=== PATIENT | female | born 1940 | race Caucasian/White ===

== ENCOUNTER 2016-03-13 08:00 | Outpatient (CLI) | payer MEDICARE | END 2016-03-13 23:59 | disposition home or self-care (01) | DX: D64.9 Anemia, unspecified (principal); Z12.10 Encounter for screening for malignant neoplasm of intestinal tract, unspecified ==

== ENCOUNTER 2016-03-27 12:37 | Outpatient (CLI) | payer MEDICARE | END 2016-03-27 12:38 | disposition home or self-care (01) | DX: R01.1 Cardiac murmur, unspecified (principal) ==

== ENCOUNTER 2016-05-30 13:47 | Outpatient (CLI) | payer MEDICARE | END 2016-05-30 13:48 | disposition home or self-care (01) | DX: G47.10 Hypersomnia, unspecified (principal); G47.8 Other sleep disorders | CPT/HCPCS: 99203; G0463 ==

== ENCOUNTER 2016-07-06 11:18 | Outpatient (CLI) | payer MEDICARE ==
[2016-07-06] MEDS ORDERED: GADOBUTROL 10 MMOL/10 ML VIAL IVP ONE (13:50)
--- NOTE | 2016-07-07 09:59 | MRI Report ---
EXAM: MR ABDOMEN WITH AND WITHOUT CONTRAST (MR KIDNEYS) EXAM DATE: 07/06/2016 12:45 PM. CLINICAL HISTORY: Ultrasound isoechoic and complex CT dense mass in the posterior mid left renal jasiel ex, follow-up. COMPARISON: None. TECHNIQUE: Multiplanar breath-hold T1, T2, and DWI sequences obtained through the kidneys and abdomen on an MR scanner. Images obtained before and after administration of 8 mL Gadavist intravenous contr ast. Multiphase sequences obtained through the kidneys. FINDINGS: Lung Bases and Lower Chest: There is borderline cardiomegaly. Liver: The liver has normal size, morphology and signal. No evidence of mass or biliary dilatation. Gallbladder: The gallbladder is partially distended and appears normal with no wall thickening or sto ne. Pancreas: The pancreas appears normal with no mass or ductal dilatation. Spleen: The spleen appears normal. Kidneys: Right Kidney: The right kidney measures 9.6 cm in length. In the upper pole, there is a simple cortic al cyst, 1.4 cm in diameter; no complex cyst, mass or hydronephrosis. The visualized portions of the ureters appear normal. Left Kidney: The left kidney measures 9.9 cm in length. There are 2 semiexophytic left renal cortical lesions. One is in the lateral mid cortex, 1.7 x 2.2 x 2.1 cm, hyper T1, hypo T2 signal intensity in the lower half and hyper T2 and hypo T1 signal intensity in the upper half without IV contrast enhan cement, compatible with a hemorrhagic cyst. The second is located in the posterior lower pole, 2.6 x 2.6 x 3.1 cm, a thick rim-like complex cyst, the wall thickness measured 4 mm, containing a daughter cystic nidus in the cranial portion, 1.1 x 1 x 1.5 cm, without hyper T1 signal intensity to suggest h emorrhagic component. There are 2 left renal intracortical lesions, one in the upper posterior mid co rtex, 1.8 x 1.3 cm, a simple cyst; the other one located in the lower pole cortex, 1.5 x 2 cm with hy per T1, hypo T2 signal intensity without IV contrast enhancement, compatible with a hemorrhagic cyst. No solid renal mass or hydronephrosis in the left kidney seen. The visualized portions of the ureter s appear normal. The left renal hilum and perirenal hilum are unremarkable. Adrenals: The adrenal glands appear normal. Bowel: The small bowel and colon appear normal with no inflammation or obstruction. Retroperitoneum: The retroperitoneal structures appear normal with no mass or lymphadenopathy. Other: Imaging artifact from the posterior lower lumbar spine fusion hardware is noted. IMPRESSION: 1. Two semiexophytic left renal cortical lesions. One is located in the posterior mid-lower pole, a s light thickened wall complex cyst containing a daughter cyst, 3.1 cm in the maximum dimension, which corresponds to the isoechoic lesion in the ultrasound and complex density in the CT exam. Continued a bdominal MRI follow-up in 6-10 months is recommended. The other semiexophytic cortical lesion is loca pete in the lateral mid cortex, compatible with a hemorrhagic cyst. 2. Two intracortical lesions in the left kidney, one in the upper posterior cortex, consistent with a simple cyst and one in the lower pole of the left kidney, consistent with a hemorrhagic cyst. 3. A simple cortical cyst in the upper pole of the right kidney. [facility] Referring Provider Line: [phone] SITE ID: [id number]
== END 2016-07-06 11:19 | disposition home or self-care (01) ==
LOC: DI 11:18
DX: N28.9 Disorder of kidney and ureter, unspecified (principal); Q61.02 Congenital multiple renal cysts
CPT/HCPCS: 36415; 74183; 82565; A9585

== ENCOUNTER 2016-07-19 09:30 | Outpatient (CLI) | payer MEDICARE ==
[2016-07-19 12:44] LABS: BASOPHILS % (AUTO) 0.7 %; EOSINOPHILS # (AUTO) 0.2 10^3/uL (0.0-0.7); EOSINOPHILS % (AUTO) 3.1 %; HCT - HEMATOCRIT 33.3 % (37.0-47.0); HGB - HEMOGLOBIN 11.1 g/dL (12.0-16.0); LYMPHOCYTES # (AUTO) 1.2 10^3/uL (1.5-3.5); LYMPHOCYTES % (AUTO) 17.7 %; MEAN CORPUSCULAR HEMOGLOBIN 30.6 pg (27.0-31.0); MEAN CORPUSCULAR HGB CONC 33.3 g/dL (32.0-36.0); MEAN CORPUSCULAR VOLUME 91.8 fL (81.0-99.0); MEAN PLATELET VOLUME 8.6 fL (7.9-10.8); MONOCYTES # (AUTO) 0.5 10^3/uL (0.0-1.0); MONOCYTES % (AUTO) 7.2 %; NEUTROPHILS # (AUTO) 4.8 10^3/uL (1.5-6.6); NEUTROPHILS % (AUTO) 71.3 %; RED BLOOD COUNT 3.62 10^6/uL (4.20-5.40); RED CELL DISTRIBUTION WIDTH 13.6 % (12.0-15.0); UNCORRECTED WHITE BLOOD COUNT 6.7 x10^3/uL; WHITE BLOOD COUNT 6.7 x10^3/uL (4.8-10.8)
[2016-07-19 13:12] LABS: ALBUMIN/GLOBULIN RATIO 1.4 (1.0-2.2); BILIRUBIN,TOTAL 0.5 mg/dL (0.2-1.0); BUN - BLOOD UREA NITROGEN 28 mg/dL (6-20); CALCIUM 10.4 mg/dL (8.5-10.3); CARBON DIOXIDE - CO2 24 mmol/L (21-32); CHLORIDE 110 mmol/L (101-111); CHOLESTEROL 133 mg/dL; CREATININE 1.1 mg/dL (0.4-1.0); GFR - MDRD 48 (>89); GLUCOSE 86 mg/dL (70-100); HDL CHOLESTEROL 45 mg/dL; LDL/HDL RATIO 1.5 (<4.4); POTASSIUM 4.6 mmol/L (3.5-5.0); SODIUM 138 mmol/L (135-145); TOTAL PROTEIN 6.6 g/dL (6.7-8.2); TRIGLYCERIDES 98 mg/dL; VLDL CHOLESTEROL 20 mg/dL
[2016-07-19 13:14] LABS: HEMOGLOBIN A1C 0.41 g/dL
[2016-07-19 13:34] LABS: THYROID STIMULATING HORMONE 2.73 uIU/mL (0.34-5.60)
== END 2016-07-19 09:31 ==
LOC: LAB.WCP 09:30
PROVIDERS: ATTEND Physician Assistant Medical
DX: D64.9 Anemia, unspecified (principal); R63.5 Abnormal weight gain; E78.00 Pure hypercholesterolemia, unspecified; E11.9 Type 2 diabetes mellitus without complications; E53.8 Deficiency of other specified B group vitamins
CPT/HCPCS: 36415; 80053; 80061; 82043; 82607; 83036; 83970; 84439; 84443; 85025

== ENCOUNTER 2016-08-09 22:26 | Outpatient (CLI) | payer MEDICARE | END 2016-08-09 22:27 | disposition home or self-care (01) | DX: G47.8 Other sleep disorders (principal); R06.83 Snoring; G47.10 Hypersomnia, unspecified ==

== ENCOUNTER 2016-08-29 13:58 | Outpatient (CLI) | payer MEDICARE | END 2016-08-29 13:59 | disposition home or self-care (01) | LOC: SC 13:58 | PROVIDERS: ATTEND Nurse Practitioner Family | DX: G47.8 Other sleep disorders (principal); G47.10 Hypersomnia, unspecified | CPT/HCPCS: 99214; G0463; 99212 ==

== ENCOUNTER 2016-12-27 08:00 | Outpatient (CLI) | payer MEDICARE ==
[2016-12-27 19:30] LABS: BASOPHILS % (AUTO) 0.5 %; EOSINOPHILS # (AUTO) 0.2 10^3/uL (0.0-0.7); EOSINOPHILS % (AUTO) 2.9 %; HGB - HEMOGLOBIN 11.2 g/dL (12.0-16.0); LYMPHOCYTES # (AUTO) 1.2 10^3/uL (1.5-3.5); LYMPHOCYTES % (AUTO) 22.2 %; MEAN CORPUSCULAR HEMOGLOBIN 30.6 pg (27.0-31.0); MEAN CORPUSCULAR HGB CONC 33.1 g/dL (32.0-36.0); MEAN CORPUSCULAR VOLUME 92.5 fL (81.0-99.0); MEAN PLATELET VOLUME 8.9 fL (7.9-10.8); MONOCYTES # (AUTO) 0.4 10^3/uL (0.0-1.0); MONOCYTES % (AUTO) 8.1 %; NEUTROPHILS # (AUTO) 3.6 10^3/uL (1.5-6.6); NEUTROPHILS % (AUTO) 66.3 %; NUCLEATED RED BLOOD CELLS AUTO 0.1 /100WBC; RED BLOOD COUNT 3.67 10^6/uL (4.20-5.40); RED CELL DISTRIBUTION WIDTH 14.1 % (12.0-15.0); UNCORRECTED WHITE BLOOD COUNT 5.4 x10^3/uL; WHITE BLOOD COUNT 5.4 x10^3/uL (4.8-10.8)
[2016-12-27 19:43] LABS: HEMOGLOBIN A1C 0.46 g/dL
[2016-12-27 20:01] LABS: ALBUMIN/GLOBULIN RATIO 1.3 (1.0-2.2); BILIRUBIN,TOTAL 0.4 mg/dL (0.2-1.0); CALCIUM 10.4 mg/dL (8.5-10.3); CREATININE 1.2 mg/dL (0.4-1.0); POTASSIUM 4.5 mmol/L (3.5-5.0); TOTAL PROTEIN 6.9 g/dL (6.7-8.2)
== END 2016-12-27 08:01 | disposition home or self-care (01) ==
LOC: LAB.WCP 08:00
PROVIDERS: ATTEND Physician Assistant Medical
DX: R79.89 Other specified abnormal findings of blood chemistry (principal); E83.52 Hypercalcemia; M71.21 Synovial cyst of popliteal space [Baker], right knee; E53.8 Deficiency of other specified B group vitamins; D64.9 Anemia, unspecified; E11.9 Type 2 diabetes mellitus without complications
CPT/HCPCS: 36415; 80053; 82607; 82728; 83036; 83540; 83970; 84466; 85025

== ENCOUNTER 2016-12-28 09:48 | Outpatient (CLI) | payer MEDICARE ==
[2016-12-28 10:10] LABS: CALCIUM, IONIZED 1.38 mmol/L (1.15-1.33); VBG PH 7.346 (7.31-7.41)
== END 2016-12-28 09:49 | disposition home or self-care (01) ==
LOC: LAB 09:48
PROVIDERS: ATTEND Physician Assistant Medical
DX: R79.89 Other specified abnormal findings of blood chemistry (principal); E83.52 Hypercalcemia; M71.21 Synovial cyst of popliteal space [Baker], right knee
CPT/HCPCS: 36415; 82330

== ENCOUNTER 2017-03-05 10:59 | Outpatient (CLI) | payer MEDICARE | END 2017-03-05 11:00 | disposition home or self-care (01) | LOC: LAB 10:59 | PROVIDERS: ATTEND Orthopaedic Surgery | DX: M17.11 Unilateral primary osteoarthritis, right knee (principal) | CPT/HCPCS: 36415; 86850; 86900; 86901 ==

== ENCOUNTER 2017-03-06 06:11 | Inpatient (IN) | payer MEDICARE ==
[2017-03-06] MEDS ORDERED: LACTATED RINGERS 1,000 ML IV ONE ×3 (06:32→09:19)
[2017-03-06] MEDS ORDERED: ceFAZolin 2 GM/50 ML 2 GM/50 ML BAG IV ONE (06:35)
[2017-03-06] MEDS ORDERED: ACETAMINOPHEN 1,000 MG/100 ML 100 ML IV ONE ×2 (06:56→09:00)
[2017-03-06] MEDS ORDERED: LIDOCAINE-MPF 2% 5 ML VIAL IM ONE (09:00)
[2017-03-06] MEDS ORDERED: NEOSTIGMINE 1 MG/1 ML 10 ML MDV IVP ONE (09:00)
[2017-03-06] MEDS ORDERED: PROPOFOL 200 MG/20 ML VIAL IVP ONE (09:00)
[2017-03-06] MEDS ORDERED: DEXAMETHASONE 4 MG/ML VIAL IVP ONE (09:00)
[2017-03-06] MEDS ORDERED: fentaNYL 100 MCG/2 ML VIAL IVP ONE (09:00)
[2017-03-06] MEDS ORDERED: KETAMINE 500 MG/10 ML VIAL IVP ONE (09:00)
[2017-03-06] MEDS ORDERED: GLYCOPYRROLATE 1 MG/5 ML VIAL IVP ONE (09:00)
[2017-03-06] MEDS ORDERED: ONDANSETRON 4 MG/2 ML VIAL IVP ONE (09:00)
[2017-03-06] MEDS ORDERED: ROCURONIUM 50 MG/5 ML VIAL IVP ONE (09:00)
[2017-03-06] MEDS ORDERED: TRANEXAMIC ACID 1,000 MG/10 ML VIAL IV ONE (09:00)
[2017-03-06] MEDS ORDERED: MIDAZOLAM 2 MG/2 ML VIAL IVP ONE (09:00)
[2017-03-06] MEDS ORDERED: MORPHINE PF 5 MG/10 ML AMP SUBQ ONE (09:27)
[2017-03-06] MEDS ORDERED: KETOROLAC 15 MG/ML VIAL IVP ONE (09:27)
[2017-03-06] MEDS ORDERED: EPINEPHrine 1 MG/ML AMP IVP ONE (09:27)
[2017-03-06] MEDS ORDERED: BUPIVACAINE 0.5% PF 30 ML VIAL SUBQ ONE ×2 (09:28)
[2017-03-06] MEDS ORDERED: ROPIVACAINE 0.2% PF 20 ML AMPULE SUBQ ONE (09:28)
--- NOTE | 2017-03-06 09:51 | OPERATIVE REPORT ---
Operative Report - General Admit Date: 03/06/17 Procedure Date: 03/06/17 Planned Procedure: Right total knee arthroplasty Pre-Op Diagnosis: right knee djd Procedure Performed: Right total knee arthroplasty Post Op Diagnosis: same - Procedure Note Primary Surgeon: rafael Anesthesia Provider: marcio Anesthesia Technique: General ET tube IV Fluids (mL): 70
[2017-03-06] MEDS ORDERED: ACETAMINOPHEN 325 MG TABLET PO PRN (09:52)
[2017-03-06] MEDS ORDERED: ACETAMINOPHEN 1,000 MG/100 ML 100 ML IV PRN (09:52)
[2017-03-06] MEDS ORDERED: PROCHLORPERAZINE 10 MG/2 ML VIAL IVP PRN (09:52)
[2017-03-06] MEDS ORDERED: HYDROmorphone 1 MG/ML SYRINGE IVP PRN (09:52)
[2017-03-06] MEDS ORDERED: ONDANSETRON 4 MG/2 ML VIAL IVP PRN (09:52)
[2017-03-06] MEDS ORDERED: BISACODYL 10 MG SUPP PR PRN (09:52)
[2017-03-06] MEDS ORDERED: SODIUM CHLORIDE FLUSH 0.9% 10 ML SYRINGE IVP PRN (09:52)
[2017-03-06] MEDS ORDERED: ceFAZolin 2 GM/50 ML 2 GM/50 ML BAG IV SCH (10:00)
[2017-03-06] MEDS: HYDROmorphone 1 MG/ML SYRINGE ONE ×4 (10:12→10:40)
--- NOTE | 2017-03-06 10:56 | OPERATIVE REPORT ---
DATE OF SERVICE: 03/06/2017 Physician: Abi Flanagan MD DATE OF SURGERY: 03/06/2017 PREOPERATIVE DIAGNOSIS: Right knee osteoarthritis. POSTOPERATIVE DIAGNOSIS: Right knee osteoarthritis. NAME OF PROCEDURE: Right total knee arthroplasty. SURGEON: Abi Flanagan MD ANESTHESIA: General by Natalie Enriquez. INDICATIONS FOR SURGERY: The patient is a 77-year-old female with end-stage osteoarthritis of her right knee who has failed nonoperative treatment and has progressive knee pain, limping and functional loss. She desires total knee arthroplasty. FINDINGS AT SURGERY: The patient's knee was shown to have diminished range of motion approximately 5 degrees to 110 degrees max with fluid in the knee, but normal ligament stability. At open surgery, she was found to have a large pale yellow effusion and loose bodies in the knee with moderate synovitis, especially in the superior patellar area. She had severe wear of the lateral compartment, intact meniscus. The ACL was essentially nonexistent or shredded and the bone density poor. DESCRIPTION OF OPERATIVE PROCEDURE: The patient was taken to the operating room, given a general anesthetic in the supine position. A tourniquet was wrapped onto her right thigh and her knee and leg were sterilely prepped and draped in standard fashion. The surgical timeout was held after which the limb was exsanguinated, tourniquet inflated to 300 mmHg and a curved 8 inch incision was made around the medial aspect of the knee. This incision was deepened down to the deep layer and the fascia incised along a parapatellar incision. Some of the fat pad was exposed and excised and capsule reflected off the medial tibia to allow lateral dislocation of the patella and flexion of the knee. In this position, retractors were positioned to expose the distal femur. The ACL remnants were excised. Osteophytes were excised and a medullary hole was made with the drill. The distal cutting block was applied to the femur and an extra 2 mm was taken off the femur with the cutting block. Sizing was after a 4 and 1 cut was made and the sizing was for a size 7 narrow. Following this, the retractors were then positioned around the tibia and the external alignment tower was applied and adjusted for rotation length and slope and appropriate cutting depth. The cut was made, and then slightly revised to be a deeper cut. The tibial tray size D and the tray was applied and the trial reduction performed with a size 12 liner being most appropriate for stability, range of motion. The patella was then resected from 23 down to 15 mm thickness and drilled for a 32 mm diameter patella. Trial reduction of the patella showed excellent tracking. The knee was flushed and irrigated, trial components removed. The implantable components were delivered and once the knee was prepared by drying and cleansing, the cement was ready and the initial implantation was of the tibial baseplate with the poly inserted, followed by delivering the femur into the field and inserting the femoral component and lastly applying the patella. All excess cement had been removed from the surfaces and after cement hardening, the knee was flushed and cleansed and actually had a flush of dilute Betadine fluid for about 3 minutes, then cleansed with saline. The tourniquet was deflated. There was minimal bleeding and what was evident was controlled with a Bovie. It was elected that not to use any drainage, as the knee was fairly dry. Closure was undertaken using FiberWire closure of the medial retinaculum and interrupted sutures, 0 Vicryl and 2-0 Vicryl closure of subcutaneous tissues and Monocryl 3-0 closure of skin. A Mediplex silver containing dressing was applied to the wound and an overwrap of cast padding and an Damian wrap were applied. The patient was then taken to the recovery room in stable condition. ESTIMATED BLOOD LOSS: For the procedure was about 70 mL. COMPLICATIONS: None. COUNTS: Sponge and needle counts correct. TOURNIQUET TIME: Was approximately 55 minutes at 300 mmHg. TD: 03/06/2017 11:52
[2017-03-06] MEDS: HYDROcod/ACETAM 5/325 MG TABLET PO PRN ×3 (13:02→22:54)
[2017-03-06] MEDS: INSULIN ASPART 300 UNIT/3 ML PEN SUBQ SCH ×3 (13:04→20:47)
[2017-03-06] MEDS: SODIUM CHLORIDE FLUSH 0.9% 10 ML SYRINGE IVP SCH ×2 (13:26→21:11)
[2017-03-06] MEDS: SODIUM CHLORIDE 0.45% 1,000 ML IV SCH ×2 (13:36→22:54)
[2017-03-06] MEDS: ceFAZolin 2 GM/50 ML 2 GM/50 ML BAG IV SCH (15:23)
--- NOTE | 2017-03-06 19:08 | XRAY Report ---
DATE OF SERVICE: 03/06/2017 TWO VIEW RIGHT KNEE: 03/06/2017 CLINICAL INDICATION: Postop knee replacement. Frontal and lateral views of the right knee demonstrate a total knee replacement in place. There is no evidence of fracture or hardware complication. Subcutaneous gas is noted. IMPRESSION: Expected postoperative appearance of right knee replacement. TD: 03/06/2017 20:08
[2017-03-07] MEDS: ceFAZolin 2 GM/50 ML 2 GM/50 ML BAG IV SCH (00:13)
[2017-03-07] MEDS: SODIUM CHLORIDE FLUSH 0.9% 10 ML SYRINGE IVP SCH ×3 (05:23→22:26)
[2017-03-07] MEDS: SODIUM CHLORIDE 0.45% 1,000 ML IV SCH ×2 (05:27→09:16)
[2017-03-07] MEDS: HYDROcod/ACETAM 5/325 MG TABLET PO PRN ×5 (06:08→22:26)
[2017-03-07 06:45] LABS: ALBUMIN/GLOBULIN RATIO 1.3 (1.0-2.2); BILIRUBIN,TOTAL 0.5 mg/dL (0.2-1.0); CALCIUM 9.4 mg/dL (8.5-10.3); CREATININE 1.2 mg/dL (0.4-1.0); TOTAL PROTEIN 5.4 g/dL (6.7-8.2)
--- NOTE | 2017-03-07 08:10 | PROVIDER PROGRESS NOTE ---
Subjective - General Admit Date: 03/06/17 Procedure Date: 03/06/17 Post Op Days: 1 Procedure Performed: right total knee arthroplasty - Review of Systems Wound/Incisions: positive: Dressing dry and intact Gastrointestinal: positive: No symptoms Musculoskeletal: positive: Joint pain Objective - Patient Data Reviewed Vital Signs: Yes Vital Signs: Vital Signs x48h Temp Pulse Resp BP Pulse Ox 03/07/17 04:45 36.6 C 61 18 160/60 H 94 Weight: Weight 03/05/17 03/06/17 03/07/17 23:59 23:59 23:59 Weight (kg) 87.9 kg Intake & Output: Intake and Output Totals x24h 03/05/17 03/06/17 03/07/17 23:59 23:59 23:59 Intake Total 1969 545 Balance 1969 545 - Lab Results Lab Results: 03/07/17 08:55 03/07/17 06:30 Other Lab Results: Lab Results x24hrs 03/07/17 03/07/17 03/06/17 Range/Units 07:23 06:30 20:45 Sodium 132 L (135-145) mmol/L Potassium 4.4 (3.5-5.0) mmol/L Chloride 100 L (101-111) mmol/L Carbon Dioxide 22 (21-32) mmol/L Anion Gap 10.0 (6-13) BUN 28 H (6-20) mg/dL Creatinine 1.2 H (0.4-1.0) mg/dL Estimated GFR (MDRD) 43 L (>89) Glucose 113 H (70-100) mg/dL POC Whole Bld Glucose 94 131 H (70 - 100) mg/dL Calcium 9.4 (8.5-10.3) mg/dL Total Bilirubin 0.5 (0.2-1.0) mg/dL AST 17 (10-42) IU/L ALT 11 (10-60) IU/L Alkaline Phosphatase 36 L (42-121) IU/L Total Protein 5.4 L (6.7-8.2) g/dL Albumin 3.0 L (3.2-5.5) g/dL Globulin 2.4 (2.1-4.2) g/dL Albumin/Globulin Ratio 1.3 (1.0-2.2) 01/03/06/17 03/06/17 Range/Units 17:00 12:15 11:43 Sodium (135-145) mmol/L Potassium (3.5-5.0) mmol/L Chloride (101-111) mmol/L Carbon Dioxide (21-32) mmol/L Anion Gap (6-13) BUN (6-20) mg/dL Creatinine (0.4-1.0) mg/dL Estimated GFR (MDRD) (>89) Glucose (70-100) mg/dL POC Whole Bld Glucose 157 H 149 H 155 H (70 - 100) mg/dL Calcium (8.5-10.3) mg/dL Total Bilirubin (0.2-1.0) mg/dL AST (10-42) IU/L ALT (10-60) IU/L Alkaline Phosphatase (42-121) IU/L Total Protein (6.7-8.2) g/dL Albumin (3.2-5.5) g/dL Globulin (2.1-4.2) g/dL Albumin/Globulin Ratio (1.0-2.2) 03/06/17 03/06/17 Range/Units 10:19 08:45 Sodium (135-145) mmol/L Potassium (3.5-5.0) mmol/L Chloride (101-111) mmol/L Carbon Dioxide (21-32) mmol/L Anion Gap (6-13) BUN (6-20) mg/dL Creatinine (0.4-1.0) mg/dL Estimated GFR (MDRD) (>89) Glucose (70-100) mg/dL POC Whole Bld Glucose 135 H 114 H (70 - 100) mg/dL Calcium (8.5-10.3) mg/dL Total Bilirubin (0.2-1.0) mg/dL AST (10-42) IU/L ALT (10-60) IU/L Alkaline Phosphatase (42-121) IU/L Total Protein (6.7-8.2) g/dL Albumin (3.2-5.5) g/dL Globulin (2.1-4.2) g/dL Albumin/Globulin Ratio (1.0-2.2) - Imaging Results Radiology Imaging: positive: EMP read indepedently - Current Medications Current Medications: Current Medications Generic Name Dose Route Start Last Admin Trade Name Freq PRN Reason Stop Dose Admin Acetaminophen/Hydrocodone Bitart 1 tab 03/06/17 09:52 03/07/17 06:08 [place] 5/325 PO 1 tab Q4HR PRN Administration PAIN Hydromorphone HCl 0.5 mg 03/06/17 09:52 03/07/17 05:37 Dilaudid Inj Syringe IVP 0.5 mg Q2H PRN Administration PAIN Acetaminophen 100 mls @ 400 mls/hr 03/06/17 09:52 03/06/17 20:20 Ofirmev IV Infused Q6HR PRN Infusion PAIN Sodium Chloride 1,000 mls @ 100 mls/hr 03/06/17 10:00 03/07/17 05:27 Normal Saline 0.45% IV Not Given .Q10H [facility] Insulin Aspart 1 - 5 unit 03/06/17 12:00 03/06/17 20:47 Novolog SUBQ Not Given 0800,1200,1700,2100 [facility] Protocol Sodium Chloride 10 ml 03/06/17 14:00 03/07/17 05:23 Normal Saline Flush 0.9% IVP Not Given Q8HR [facility]IKA - Physical Exam Wound/Incisions: positive: Healing well General Appearance: positive: No acute distress Extremities: positive: Joint swelling Neurologic/Psychiatric: positive: Motor nml, Sensation nml Impression/Plan - Problem List Problem List: POD #1 Pt is doing well. PLan to begin PT. Talked about SNF, and I think it is appropriate.
[2017-03-07 09:04] LABS: HGB - HEMOGLOBIN 9.2 g/dL (12.0-16.0)
[2017-03-07] MEDS: INSULIN ASPART 300 UNIT/3 ML PEN SUBQ SCH ×4 (09:16→21:07)
[2017-03-07] MEDS: SENNA 8.6 MG TABLET PO PRN (10:26)
[2017-03-07] MEDS: ASPIRIN EC 325 MG TABLET PO SCH (12:06)
[2017-03-07] MEDS: oxyCODONE 5 MG TABLET PO PRN (19:34)
[2017-03-08] MEDS: HYDROcod/ACETAM 5/325 MG TABLET PO PRN ×3 (02:07→14:58)
[2017-03-08] MEDS: SODIUM CHLORIDE 0.45% 1,000 ML IV SCH ×2 (03:18→12:16)
[2017-03-08] MEDS: oxyCODONE 5 MG TABLET PO PRN ×4 (06:55→23:02)
[2017-03-08] MEDS: SODIUM CHLORIDE FLUSH 0.9% 10 ML SYRINGE IVP SCH ×3 (06:55→22:07)
[2017-03-08] MEDS: INSULIN ASPART 300 UNIT/3 ML PEN SUBQ SCH ×4 (07:54→22:06)
[2017-03-08] MEDS: SENNA 8.6 MG TABLET PO PRN ×2 (07:59→23:04)
[2017-03-08] MEDS: ASPIRIN EC 325 MG TABLET PO SCH (08:00)
[2017-03-08] MEDS ORDERED: FLUTICASONE NASAL SPRAY NAS PRN (09:00)
--- NOTE | 2017-03-08 09:03 | PROVIDER PROGRESS NOTE ---
Subjective - General Admit Date: 03/06/17 Procedure Date: 03/06/17 Post Op Days: 2 Procedure Performed: right total knee arthroplasty - Review of Systems Wound/Incisions: positive: Healing well Gastrointestinal: positive: No symptoms Genitourinary: positive: Frequency Musculoskeletal: positive: Joint pain Psychiatric: positive: No symptoms Objective - Patient Data Reviewed Vital Signs: Yes Vital Signs: Vital Signs x48h Temp Pulse Resp BP Pulse Ox 03/08/17 08:17 37.3 C 65 16 171/60 H 95 03/08/17 04:51 36.9 C 56 L 18 176/65 H 97 Weight: Weight 03/06/17 03/07/17 03/08/17 23:59 23:59 23:59 Weight (kg) 87.9 kg Intake & Output: Intake and Output Totals x24h 03/06/17 03/07/17 03/08/17 23:59 23:59 23:59 Intake Total 1969 2706 200 Output Total 450 Balance 1969 2256 200 - Lab Results Lab Results: 03/07/17 08:55 03/07/17 06:30 Other Lab Results: Lab Results x24hrs 03/08/17 03/07/17 03/07/17 Range/Units 07:38 21:06 16:39 Hgb (12.0-16.0) g/dL Hct (37.0-47.0) % POC Whole Bld Glucose 105 H 125 H 117 H (70 - 100) mg/dL 03/07/17 03/07/17 Range/Units 11:18 08:55 Hgb 9.2 L (12.0-16.0) g/dL Hct 27.3 L (37.0-47.0) % POC Whole Bld Glucose 111 H (70 - 100) mg/dL - Current Medications Current Medications: Current Medications Generic Name Dose Route Start Last Admin Trade Name Freq PRN Reason Stop Dose Admin Acetaminophen 650 - 975 mg 03/06/17 09:52 03/07/17 16:54 Tylenol PO 650 mg Q4HR PRN Administration PAIN Acetaminophen/Hydrocodone Bitart 1 tab 03/06/17 09:52 03/08/17 07:59 [place] 5/325 PO 1 tab Q4HR PRN Administration PAIN Aspirin 325 mg 03/07/17 12:00 03/08/17 08:00 Ecotrin PO 325 mg DAILY MONIKA Administration Hydromorphone HCl 0.5 mg 03/06/17 09:52 03/07/17 05:37 Dilaudid Inj Syringe IVP 0.5 mg Q2H PRN Administration PAIN Acetaminophen 100 mls @ 400 mls/hr 03/06/17 09:52 03/06/17 20:20 Ofirmev IV Infused Q6HR PRN Infusion PAIN Sodium Chloride 1,000 mls @ 100 mls/hr 03/06/17 10:00 03/08/17 03:18 Normal Saline 0.45% IV Not Given .Q10H [facility] Insulin Aspart 1 - 5 unit 03/06/17 12:00 03/08/17 07:54 Novolog SUBQ Not Given 0800,1200,1700,2100 [facility] Protocol Oxycodone HCl 5 mg 03/07/17 18:05 03/08/17 06:55 Roxicodone PO 03/10/17 18:05 5 mg Q4HR PRN Administration PAIN Senna 17.2 mg 03/06/17 09:52 03/08/17 07:59 Senokot PO 17.2 mg Q12H PRN Administration Constipation Sodium Chloride 10 ml 03/06/17 14:00 03/08/17 06:55 Normal Saline Flush 0.9% IVP 10 ml Q8HR MONIKA Administration - Physical Exam Wound/Incisions: positive: Dressing dry and intact Neck: positive: Nml inspection Cardiovascular: positive: Regular rate & rhythm Abdomen: positive: No distention Skin: positive: Warm, Dry Neurologic/Psychiatric: positive: Oriented x3, Motor nml, Sensation nml, Mood/ affect nml Impression/Plan - Problem List Problem List: POD #2 Pt is having less pain. increasing ability with PT plan for SNF placement at d/c.
[2017-03-08] MEDS: DOXAZOSIN 4 MG TABLET PO SCH (10:46)
[2017-03-08] MEDS: metFORMIN 850 MG TABLET PO SCH (10:46)
[2017-03-08] MEDS: ATORVASTATIN 40 MG TABLET PO SCH (10:47)
[2017-03-08] MEDS: LISINOPRIL 20 MG TABLET PO SCH (10:47)
[2017-03-08] MEDS: FUROSEMIDE 20 MG TABLET PO SCH (10:47)
[2017-03-08 12:36] LABS: MEAN CORPUSCULAR HEMOGLOBIN 31.5 pg (27.0-31.0); MEAN CORPUSCULAR HGB CONC 34.6 g/dL (32.0-36.0); MEAN CORPUSCULAR VOLUME 90.8 fL (81.0-99.0); MEAN PLATELET VOLUME 9.1 fL (7.9-10.8); RED BLOOD COUNT 3.18 10^6/uL (4.20-5.40); RED CELL DISTRIBUTION WIDTH 13.1 % (12.0-15.0); WHITE BLOOD COUNT 8.8 x10^3/uL (4.8-10.8)
[2017-03-09] MEDS: oxyCODONE 5 MG TABLET PO PRN ×2 (04:25→10:34)
[2017-03-09] MEDS: SODIUM CHLORIDE FLUSH 0.9% 10 ML SYRINGE IVP SCH ×3 (04:29→22:07)
[2017-03-09 05:56] LABS: MEAN CORPUSCULAR HEMOGLOBIN 30.4 pg (27.0-31.0); MEAN CORPUSCULAR HGB CONC 33.2 g/dL (32.0-36.0); MEAN CORPUSCULAR VOLUME 91.5 fL (81.0-99.0); MEAN PLATELET VOLUME 8.5 fL (7.9-10.8); RED BLOOD COUNT 2.95 10^6/uL (4.20-5.40); RED CELL DISTRIBUTION WIDTH 12.8 % (12.0-15.0); WHITE BLOOD COUNT 7.7 x10^3/uL (4.8-10.8)
[2017-03-09] MEDS: INSULIN ASPART 300 UNIT/3 ML PEN SUBQ SCH ×4 (07:56→22:06)
[2017-03-09] MEDS: ATORVASTATIN 40 MG TABLET PO SCH (08:26)
[2017-03-09] MEDS: LISINOPRIL 20 MG TABLET PO SCH (08:26)
[2017-03-09] MEDS: DOXAZOSIN 4 MG TABLET PO SCH (08:26)
[2017-03-09] MEDS: FUROSEMIDE 20 MG TABLET PO SCH (08:26)
[2017-03-09] MEDS: ASPIRIN EC 325 MG TABLET PO SCH (08:26)
[2017-03-09] MEDS: metFORMIN 850 MG TABLET PO SCH (08:26)
--- NOTE | 2017-03-09 09:26 | PROVIDER PROGRESS NOTE ---
Subjective - General Admit Date: 03/06/17 Procedure Date: 03/06/17 Post Op Days: 3 Procedure Performed: right total knee arthroplasty - Review of Systems Wound/Incisions: positive: Dressing dry and intact Gastrointestinal: positive: No symptoms Genitourinary: positive: Frequency Musculoskeletal: positive: Joint pain Psychiatric: positive: No symptoms Objective - Patient Data Reviewed Vital Signs: Yes Vital Signs: Vital Signs x48h Temp Pulse Resp BP Pulse Ox 03/09/17 07:55 37.4 C 69 18 147/57 H 97 03/09/17 05:00 37.3 C 75 16 139/51 H 94 Intake & Output: Intake and Output Totals x24h 03/07/17 03/08/17 03/09/17 23:59 23:59 23:59 Intake Total 2706 1350 Output Total 450 Balance 2256 1350 - Lab Results Lab Results: 03/09/17 05:21 03/07/17 06:30 Other Lab Results: Lab Results x24hrs 03/09/17 03/09/17 03/08/17 Range/Units 07:19 05:21 20:49 WBC 7.7 (4.8-10.8) x10^3/uL RBC 2.95 L (4.20-5.40) 10^6/uL Hgb 9.0 L (12.0-16.0) g/dL Hct 27.0 L (37.0-47.0) % MCV 91.5 (81.0-99.0) fL MCH 30.4 (27.0-31.0) pg MCHC 33.2 (32.0-36.0) g/dL RDW 12.8 (12.0-15.0) % Plt Count 162 (130-450) 10^3/uL MPV 8.5 (7.9-10.8) fL POC Whole Bld Glucose 109 H 127 H (70 - 100) mg/dL 03/08/17 03/08/17 03/08/17 Range/Units 16:43 11:53 11:18 WBC 8.8 (4.8-10.8) x10^3/uL RBC 3.18 L (4.20-5.40) 10^6/uL Hgb 10.0 L (12.0-16.0) g/dL Hct 28.9 L (37.0-47.0) % MCV 90.8 (81.0-99.0) fL MCH 31.5 H (27.0-31.0) pg MCHC 34.6 (32.0-36.0) g/dL RDW 13.1 (12.0-15.0) % Plt Count 163 (130-450) 10^3/uL MPV 9.1 (7.9-10.8) fL POC Whole Bld Glucose 130 H 132 H (70 - 100) mg/dL - Current Medications Current Medications: Current Medications Generic Name Dose Route Start Last Admin Trade Name Freq PRN Reason Stop Dose Admin Acetaminophen 650 - 975 mg 03/06/17 09:52 03/07/17 16:54 Tylenol PO 650 mg Q4HR PRN Administration PAIN Aspirin 325 mg 03/07/17 12:00 03/09/17 08:26 Ecotrin PO 325 mg DAILY MONIKA Administration Atorvastatin Calcium 40 mg 03/08/17 09:00 03/09/17 08:26 Lipitor PO 40 mg DAILY MONIKA Administration Doxazosin Mesylate 4 mg 03/08/17 09:00 03/09/17 08:26 Cardura PO 4 mg DAILY MONIKA Administration Furosemide 20 mg 03/08/17 09:00 03/09/17 08:26 Lasix PO 20 mg DAILY MONIKA Administration Hydromorphone HCl 0.5 mg 03/06/17 09:52 03/07/17 05:37 Dilaudid Inj Syringe IVP 0.5 mg Q2H PRN Administration PAIN Acetaminophen 100 mls @ 400 mls/hr 03/06/17 09:52 03/06/17 20:20 Ofirmev IV Infused Q6HR PRN Infusion PAIN Insulin Aspart 1 - 5 unit 03/06/17 12:00 03/09/17 07:56 Novolog SUBQ Not Given 0800,1200,1700,2100 [facility] Protocol Lisinopril 40 mg 03/08/17 09:00 03/09/17 08:26 Zestril PO 40 mg DAILY MONIKA Administration Metformin HCl 850 mg 03/08/17 09:00 03/09/17 08:26 Glucophage PO 850 mg QDBREAKFAST MONIKA Administration Oxycodone HCl 5 mg 03/07/17 18:05 03/09/17 04:25 Roxicodone PO 03/10/17 18:05 5 mg Q4HR PRN Administration PAIN Senna 17.2 mg 03/06/17 09:52 03/08/17 23:04 Senokot PO 17.2 mg Q12H PRN Administration Constipation Sodium Chloride 10 ml 03/06/17 14:00 03/09/17 04:29 Normal Saline Flush 0.9% IVP 10 ml Q8HR MONIKA Administration
--- NOTE | 2017-03-09 11:16 | Discharge Plan ---
"Discharge Plan for SNF / [facility] - DC Plan and Transition Orders Disposition: 03 SNF DC/Xfer Condition: Good SNF Transition Orders: Admit to: [facility] under the care of Dr. Everardo Ward Discharge Diagnosis: Diabetes right total knee arthroplasty Medicare Certification: I certify that Post Hospital usp care is medically necessary on a continuing basis for any of the conditions for which she/he is receiving care during hospitalization. Notify PCP of admission and forward orders to primary provider for signature. Weight on admission and weekly. Call PCP immediately if weight increases by 5 pounds or if patient develops dyspnea, chest pain/tightness or edema. House Bowel Program: yes If no BM after 2 days, nurse may give M.O.M. 30ml PO PRN and /or ducolax Supp 1 FL and /or DAYRON 250mg P.O., and/or senna 1-2 tabs PO. On day 3 nurse may give repeat above order until residents constipation is resolved. Immunizations: Annual Influenza Vaccine: y. (between Oct 13 and May 12.) Unless allergy or already given Two-Step PPD: y per [facility] [phone] or appropriate documentation of approved exceptions Treatments & Other Orders: Leave dressing intact, and cover for shower. PT/OT Weight bear as tolerated with walker. ROM active to 80 degrees. Oxygen Orders: n Lab Tests or X-Rays Orders: n Orthopedic Orders: see above. Medications: PLEASE REFER TO THE DISCHARGE MEDICATION LIST. Insulin Orders? n Diagnosis: Diabetes Initiate hypo and hyperglycemia protocols for BG <70 and BG >375. May check BG prn for signs/symptoms of dysglycemia. Frequency of BG checks: [AC/Meal/HS] Basal Insulin: Lantus 100 units / ml inject subq as follows: [] [] Other: [] Correction Insulin: - Select the type of insulin below [Choose: Novolog/Humalog]100 units /ml insulin inject subq per orders indicate below [] LOW DOSE [] MODERATE DOSE [] MODERATE/HIGH DOSE [] HIGH DOSE GB UNITS GB UNITS GB UNITS GB UNITS 61-140 0 UNITS 61-140 0 UNITS 61-140 0 UNITS 61-140 0 UNITS 141-175 1 UNITS 141-175 1 UNITS 141-175 2 UNITS 141-175 3 UNITS 176-225 2 UNITS 176-225 3 UNITS 176-225 4 UNITS 176-225 5 UNITS 226-275 3 UNITS 226-275 5 UNITS 226-275 6 UNITS 226-275 7 UNITS 276-325 4 UNITS 276-325 7 UNITS 276-325 8 UNITS 276-325 9 UNITS 326-375 5 UNITS 326-375 9 UNITS 326-375 10 UNITS 326-375 11 UNITS >375 CONTACT MD >375 CONTACT MD >375 CONTACT MD >375 CONTACT MD Custom Dosing: [Choose: None/Novolog/Humalog] 100 units/ml Insulin inject subq as follows: GB Units 61-140 [] Units 141-175 [] Units 176-225 [] Units 226-275 [] Units 276-325 []Units 326-375 [] Units >375 Contact MD Allergies and Adverse Reactions: Allergies Allergy/AdvReac Type Severity Reaction Status Date / Time No Known Drug Allergies Allergy Verified 02/04/16 12:55 - Medications New Prescriptions: Aspirin EC [Ecotrin] 325 mg PO DAILY #30 tablet HYDROcod/ACETAM 5/325 [[place] 5/325] 1 tab PO RTQ6H PRN #60 tablet PRN Reason: Pain - Diet Type: diabetic. 3 carb choices Texture: Regular Liquids: Thin May have monthly special meal: Yes - Therapies | Activity Therapy: Evaluation | Treat if indicated: PT, OT (weight bearing as tolerated with walker. ADLs. Assisted ROM of knee done carefully,, less than 80 degree flexion) Rehabilitation Potential: Return to independent living Activity: Wt Bearing as Tolerated Weight Bearing: Other (weight bear as tolerated with walker) Assistance Devices: Walker Follow Up: office f/u on 03/14/17"
[2017-03-09] MEDS: HYDROcod/ACETAM 5/325 MG TABLET PO PRN ×2 (11:33→17:56)
[2017-03-09] MEDS ORDERED: MIN OIL/DIMETHICON/COCONUT OIL 92 GM TUBE TOP PRN (13:40)
[2017-03-10] MEDS: oxyCODONE 5 MG TABLET PO PRN ×4 (00:07→17:15)
[2017-03-10] MEDS: SODIUM CHLORIDE FLUSH 0.9% 10 ML SYRINGE IVP SCH ×3 (05:49→16:26)
[2017-03-10] MEDS: DOXAZOSIN 4 MG TABLET PO SCH (09:43)
[2017-03-10] MEDS: LISINOPRIL 20 MG TABLET PO SCH (09:43)
[2017-03-10] MEDS: FUROSEMIDE 20 MG TABLET PO SCH (09:44)
[2017-03-10] MEDS: metFORMIN 850 MG TABLET PO SCH (09:44)
[2017-03-10] MEDS: ASPIRIN EC 325 MG TABLET PO SCH (09:44)
[2017-03-10] MEDS: ATORVASTATIN 40 MG TABLET PO SCH (09:44)
--- NOTE | 2017-03-10 10:13 | PROVIDER PROGRESS NOTE ---
Subjective - General Admit Date: 03/06/17 Procedure Date: 03/06/17 Post Op Days: 4 Procedure Performed: right total knee arthroplasty - Review of Systems Wound/Incisions: positive: Dressing dry and intact Gastrointestinal: positive: No symptoms Musculoskeletal: positive: Joint pain Psychiatric: positive: No symptoms Objective - Patient Data Reviewed Vital Signs: Yes Vital Signs: Vital Signs x48h Temp Pulse Resp BP Pulse Ox 03/10/17 07:53 37.2 C 73 18 150/44 H 95 03/10/17 04:49 37.0 C 78 20 147/58 H 95 Intake & Output: Intake and Output Totals x24h 03/08/17 03/09/17 03/10/17 23:59 23:59 23:59 Intake Total 1350 520 520 Balance 1350 520 520 - Lab Results Lab Results: 03/09/17 05:21 03/07/17 06:30 Other Lab Results: Lab Results x24hrs 03/10/17 03/09/17 03/09/17 Range/Units 07:30 20:24 16:37 POC Whole Bld Glucose 109 H 142 H 135 H (70 - 100) mg/dL 03/09/17 Range/Units 11:14 POC Whole Bld Glucose 109 H (70 - 100) mg/dL - Current Medications Current Medications: Current Medications Generic Name Dose Route Start Last Admin Trade Name Freq PRN Reason Stop Dose Admin Acetaminophen 650 - 975 mg 03/06/17 09:52 03/07/17 16:54 Tylenol PO 650 mg Q4HR PRN Administration PAIN Acetaminophen/Hydrocodone Bitart 1 tab 03/08/17 09:00 03/09/17 17:56 [place] 5/325 PO 1 tab TID PRN Administration PAIN Aspirin 325 mg 03/07/17 12:00 03/10/17 09:44 Ecotrin PO 325 mg DAILY MONIKA Administration Atorvastatin Calcium 40 mg 03/08/17 09:00 03/10/17 09:44 Lipitor PO 40 mg DAILY MONIKA Administration Bisacodyl 10 mg 03/06/17 09:52 03/09/17 10:15 Dulcolax Supp [place] 10 mg Q12H PRN Administration Constipation Doxazosin Mesylate 4 mg 03/08/17 09:00 03/10/17 09:43 Cardura PO 4 mg DAILY MONIKA Administration Furosemide 20 mg 03/08/17 09:00 03/10/17 09:44 Lasix PO 20 mg DAILY MONIKA Administration Hydromorphone HCl 0.5 mg 03/06/17 09:52 03/07/17 05:37 Dilaudid Inj Syringe IVP 0.5 mg Q2H PRN Administration PAIN Acetaminophen 100 mls @ 400 mls/hr 03/06/17 09:52 03/06/17 20:20 Ofirmev IV Infused Q6HR PRN Infusion PAIN Insulin Aspart 1 - 5 unit 03/06/17 12:00 03/09/17 22:06 Novolog SUBQ 1 unit 0800,1200,1700,2100 MONIKA Administration Protocol Lisinopril 40 mg 03/08/17 09:00 03/10/17 09:43 Zestril PO 40 mg DAILY MONIKA Administration Metformin HCl 850 mg 03/08/17 09:00 03/10/17 09:44 Glucophage PO 850 mg QDBREAKFAST MONIKA Administration Oxycodone HCl 5 mg 03/07/17 18:05 03/10/17 09:43 Roxicodone PO 03/10/17 18:05 5 mg Q4HR PRN Administration PAIN Senna 17.2 mg 03/06/17 09:52 03/08/17 23:04 Senokot PO 17.2 mg Q12H PRN Administration Constipation Sodium Chloride 10 ml 03/06/17 14:00 03/10/17 05:49 Normal Saline Flush 0.9% IVP Not Given Q8HR MONIKA - Physical Exam Wound/Incisions: positive: Healing well Skin: positive: No rash, Warm, Dry Extremities: positive: Joint swelling Neurologic/Psychiatric: positive: CN's nml (2-12), Motor nml, Sensation nml, Mood/affect nml Impression/Plan - Problem List Problem List: POD#4 Pt is progressing, but awaiting SNF placement. Will hope that placement available today.
[2017-03-10] MEDS: INSULIN ASPART 300 UNIT/3 ML PEN SUBQ SCH ×4 (10:51→17:15)
[2017-03-10] MEDS: HYDROcod/ACETAM 5/325 MG TABLET PO PRN (22:59)
[2017-03-11] MEDS: SODIUM CHLORIDE FLUSH 0.9% 10 ML SYRINGE IVP SCH ×3 (06:42→21:07)
[2017-03-11] MEDS: HYDROcod/ACETAM 5/325 MG TABLET PO PRN ×4 (06:42→22:30)
[2017-03-11] MEDS: INSULIN ASPART 300 UNIT/3 ML PEN SUBQ SCH ×4 (08:15→21:08)
[2017-03-11] MEDS: ASPIRIN EC 325 MG TABLET PO SCH (08:46)
[2017-03-11] MEDS: metFORMIN 850 MG TABLET PO SCH (08:46)
[2017-03-11] MEDS: FUROSEMIDE 20 MG TABLET PO SCH (08:47)
[2017-03-11] MEDS: ATORVASTATIN 40 MG TABLET PO SCH (08:47)
[2017-03-11] MEDS: DOXAZOSIN 4 MG TABLET PO SCH (08:47)
[2017-03-11] MEDS: LISINOPRIL 20 MG TABLET PO SCH (08:47)
--- NOTE | 2017-03-11 18:45 | PROVIDER PROGRESS NOTE ---
Subjective - General Admit Date: 03/06/17 Procedure Date: 03/06/17 Post Op Days: 5 Procedure Performed: right total knee arthroplasty - Review of Systems Wound/Incisions: positive: Healing well Gastrointestinal: positive: No symptoms Genitourinary: positive: Frequency Musculoskeletal: positive: Joint pain Psychiatric: positive: No symptoms Objective - Patient Data Reviewed Vital Signs: Yes Vital Signs: Vital Signs x48h Temp Pulse Resp BP Pulse Ox 03/11/17 15:22 37 C 72 16 147/48 H 96 Intake & Output: Intake and Output Totals x24h 03/09/17 03/10/17 03/11/17 23:59 23:59 23:59 Intake Total 520 1790 990 Balance 520 1790 990 - Lab Results Lab Results: 03/09/17 05:21 03/07/17 06:30 Other Lab Results: Lab Results x24hrs 03/11/17 03/11/17 03/11/17 Range/Units 16:31 11:25 07:29 POC Whole Bld Glucose 100 119 H 107 H (70 - 100) mg/dL 03/10/17 Range/Units 20:30 POC Whole Bld Glucose 130 H (70 - 100) mg/dL - Current Medications Current Medications: Current Medications Generic Name Dose Route Start Last Admin Trade Name Freq PRN Reason Stop Dose Admin Acetaminophen/Hydrocodone Bitart 1 tab 03/11/17 10:54 03/11/17 16:54 [place] 5/325 PO 1 tab Q4HR PRN Administration PAIN Aspirin 325 mg 03/07/17 12:00 03/11/17 08:46 Ecotrin PO 325 mg DAILY MONIKA Administration Atorvastatin Calcium 40 mg 03/08/17 09:00 03/11/17 08:47 Lipitor PO 40 mg DAILY MONIKA Administration Bisacodyl 10 mg 03/06/17 09:52 03/09/17 10:15 Dulcolax Supp [place] 10 mg Q12H PRN Administration Constipation Doxazosin Mesylate 4 mg 03/08/17 09:00 03/11/17 08:47 Cardura PO 4 mg DAILY MONIKA Administration Furosemide 20 mg 03/08/17 09:00 03/11/17 08:47 Lasix PO 20 mg DAILY MONIKA Administration Hydromorphone HCl 0.5 mg 03/06/17 09:52 03/07/17 05:37 Dilaudid Inj Syringe IVP 0.5 mg Q2H PRN Administration PAIN Insulin Aspart 1 - 5 unit 03/06/17 12:00 03/11/17 16:53 Novolog SUBQ Not Given 0800,1200,1700,2100 [facility] Protocol Lisinopril 40 mg 03/08/17 09:00 03/11/17 08:47 Zestril PO 40 mg DAILY MONIKA Administration Metformin HCl 850 mg 03/08/17 09:00 03/11/17 08:46 Glucophage PO 850 mg QDBREAKFAST [facility] Administration Senna 17.2 mg 03/06/17 09:52 03/08/17 23:04 Senokot PO 17.2 mg Q12H PRN Administration Constipation Sodium Chloride 10 ml 03/06/17 14:00 03/11/17 13:15 Normal Saline Flush 0.9% IVP Not Given Q8HR [facility] Impression/Plan - Problem List Problem List: POD#5 Pt is doing well. Wound healing fine. Plan for D/C home in AM
[2017-03-12] MEDS: HYDROcod/ACETAM 5/325 MG TABLET PO PRN ×2 (04:41→10:50)
[2017-03-12] MEDS: SODIUM CHLORIDE FLUSH 0.9% 10 ML SYRINGE IVP SCH ×2 (04:49→08:26)
[2017-03-12 08:14] VITALS: BP 147/48
[2017-03-12] MEDS: metFORMIN 850 MG TABLET PO SCH (08:25)
[2017-03-12] MEDS: LISINOPRIL 20 MG TABLET PO SCH (08:25)
[2017-03-12] MEDS: ATORVASTATIN 40 MG TABLET PO SCH (08:25)
[2017-03-12] MEDS: ASPIRIN EC 325 MG TABLET PO SCH (08:26)
[2017-03-12] MEDS: DOXAZOSIN 4 MG TABLET PO SCH (08:26)
[2017-03-12] MEDS: FUROSEMIDE 20 MG TABLET PO SCH (08:26)
[2017-03-12] MEDS: INSULIN ASPART 300 UNIT/3 ML PEN SUBQ SCH (08:26)
--- NOTE | 2017-03-12 08:55 | PROVIDER PROGRESS NOTE ---
Subjective - General Admit Date: 03/06/17 Procedure Date: 03/06/17 Post Op Days: 6 Procedure Performed: right total knee arthroplasty - Review of Systems Wound/Incisions: positive: Healing well Gastrointestinal: positive: No symptoms Genitourinary: positive: Frequency Musculoskeletal: positive: Joint pain Psychiatric: positive: No symptoms Objective - Patient Data Reviewed Vital Signs: Yes Vital Signs: Vital Signs x48h Temp Pulse Resp BP Pulse Ox 03/12/17 08:13 36.8 C 64 17 147/48 H 94 03/12/17 01:03 37.2 C 68 16 151/58 H 95 Intake & Output: Intake and Output Totals x24h 03/10/17 03/11/17 03/12/17 23:59 23:59 23:59 Intake Total 1790 1115 460 Balance 1790 1115 460 - Lab Results Lab Results: 03/09/17 05:21 03/07/17 06:30 Other Lab Results: Lab Results x24hrs 03/12/17 03/11/17 03/11/17 Range/Units 07:25 20:46 16:31 POC Whole Bld Glucose 113 H 130 H 100 (70 - 100) mg/dL 03/11/17 Range/Units 11:25 POC Whole Bld Glucose 119 H (70 - 100) mg/dL - Current Medications Current Medications: Current Medications Generic Name Dose Route Start Last Admin Trade Name Freq PRN Reason Stop Dose Admin Acetaminophen/Hydrocodone Bitart 1 tab 03/11/17 10:54 03/12/17 04:41 [place] 5/325 PO 1 tab Q4HR PRN Administration PAIN Aspirin 325 mg 03/07/17 12:00 03/12/17 08:26 Ecotrin PO 325 mg DAILY MONIKA Administration Atorvastatin Calcium 40 mg 03/08/17 09:00 03/12/17 08:25 Lipitor PO 40 mg DAILY MONIKA Administration Bisacodyl 10 mg 03/06/17 09:52 03/09/17 10:15 Dulcolax Supp [place] 10 mg Q12H PRN Administration Constipation Doxazosin Mesylate 4 mg 03/08/17 09:00 03/12/17 08:26 Cardura PO 4 mg DAILY MONIKA Administration Furosemide 20 mg 03/08/17 09:00 03/12/17 08:26 Lasix PO 20 mg DAILY MONIKA Administration Hydromorphone HCl 0.5 mg 03/06/17 09:52 03/07/17 05:37 Dilaudid Inj Syringe IVP 0.5 mg Q2H PRN Administration PAIN Insulin Aspart 1 - 5 unit 03/06/17 12:00 03/12/17 08:26 Novolog SUBQ Not Given 0800,1200,1700,2100 [facility] Protocol Lisinopril 40 mg 03/08/17 09:00 03/12/17 08:25 Zestril PO 40 mg DAILY MONIKA Administration Metformin HCl 850 mg 03/08/17 09:00 03/12/17 08:25 Glucophage PO 850 mg QDBREAKFAST MONIKA Administration Senna 17.2 mg 03/06/17 09:52 03/08/17 23:04 Senokot PO 17.2 mg Q12H PRN Administration Constipation Sodium Chloride 10 ml 03/06/17 14:00 03/12/17 08:26 Normal Saline Flush 0.9% IVP Not Given Q8HR MONIKA
--- NOTE | 2017-03-12 09:36 | Discharge Plan ---
Discharge Plan Disposition: Home, Self Care Condition: Good Prescriptions: Aspirin EC [Ecotrin] 325 mg PO DAILY #30 tablet HYDROcod/ACETAM 5/325 [[place] 5/325] 1 tab PO RTQ6H PRN #60 tablet PRN Reason: Pain Diet: Diabetic Activity Restrictions: Wt Bearing as Tolerated Shower Restrictions: Yes (cover wound) Driving Restrictions: Yes (no driving) Assistance Devices: Walker Weight Bearing: Other (weight bear as tolerated with walker) Additional Instructions or Follow Up instructions: F/u in Ortho clinic within next 10 days Begin outpatient Physical therapy as planned Keep dressing clean and dry Follow-Up Care: Outpatient Rehab - PT No Smoking: If you smoke, Please STOP! Call for help. Follow-up with: Carmen Hernandez PA-C [Primary Care Provider] -
--- NOTE | 2017-03-13 07:37 | DISCHARGE SUMMARY ---
DATE OF SERVICE: Physician: Abi Flanagan MD DATE OF ADMISSION: 03/06/2017 DATE OF DISCHARGE: 03/12/2017 DATE OF ADMISSION: 03/06/2017 DATE OF DISCHARGE: 03/12/2017 ADMISSION DIAGNOSIS: Right knee osteoarthritis. OPERATIVE PROCEDURE: 03/06/2017, a right total knee replacement arthroplasty. REASON FOR ADMISSION: This is a 77-year-old female who lives alone and is diabetic, who has right knee, severe osteoarthritis and desires total knee arthroplasty. The patient has failed nonoperative management. DESCRIPTION OF HOSPITAL COURSE: The patient was admitted and underwent surgery on 03/06/2017. The patient tolerated the surgery well. In the postoperative period the patient was placed on the medical/surgical floor and received standard postoperative care after total knee replacement, which included careful monitoring of her diabetes, prophylactic IV antibiotics, pain management and early physical therapy. The patient also had periodic dressing changes to her knee. The patient did show uneventful healing and was actually ready for discharge to a SNF on 03/09/2017, however, because of insurance reasons, the patient did not qualify for SNF placement, which was surprising given the fact that she is diabetic, lives alone and did not have care structure in place to be left alone at home. After waiting through the weekend for arrangements and an ultimate denial of coverage for SNF the patient made arrangements to be discharged to the care of distant relatives on 03/12/2017. At this point, she was healing well. Her pain was under control with oral medication. She was using aspirin for DVT prophylaxis. At home, she was using hydrocodone for pain, aspirin for DVTs. Her dressing was to be left in place and she was to follow up in my office in 1 week. TD: 03/13/2017 08:35
== END 2017-03-12 11:06 | disposition home or self-care (01) | DRG 470 ==
LOC: MS2 06:11
PROVIDERS: ADMIT Orthopaedic Surgery; ATTEND Orthopaedic Surgery
PROC: 0SRC069 Replacement of Right Knee Joint with Oxidized Zirconium on Polyethylene Synthetic Substitute, Cemented, Open Approach (ICD-10-PCS; principal; 2017-03-06 07:30)
DX: M17.11 Unilateral primary osteoarthritis, right knee (principal); E11.9 Type 2 diabetes mellitus without complications; I10 Essential (primary) hypertension; E78.00 Pure hypercholesterolemia, unspecified; E03.9 Hypothyroidism, unspecified; E21.3 Hyperparathyroidism, unspecified; M85.80 Other specified disorders of bone density and structure, unspecified site; K40.90 Unilateral inguinal hernia, without obstruction or gangrene, not specified as recurrent; F40.240 Claustrophobia; H54.7 Unspecified visual loss; H91.90 Unspecified hearing loss, unspecified ear; Z79.84 Long term (current) use of oral hypoglycemic drugs; Z79.82 Long term (current) use of aspirin; Z87.11 Personal history of peptic ulcer disease; Z98.1 Arthrodesis status
CPT/HCPCS: 36415; 80048; 80053; 85014; 85018

== ENCOUNTER 2017-04-11 20:42 | Outpatient (CLI) | payer MEDICARE ==
--- NOTE | 2017-04-11 22:15 | Ultrasound Preliminary Report ---
Exam: US DUPLEX EXT VEINS RIGHT IMPRESSION: 1. No evidence for deep venous thrombosis. Limited visualization as above. 2. Complex partially echogenic fluid collection seen in the popliteal fossa measuring 5.3 x 1.6 x 2 c m, could represent a partially liquefied hematoma or hemorrhagic Moreno's cyst. [facility] SITE ID: [id number]
--- NOTE | 2017-04-11 22:15 | Ultrasound Report ---
EXAM: RIGHT LOWER EXTREMITY VENOUS ULTRASOUND EXAM DATE: 04/11/2017 09:38 PM. CLINICAL HISTORY: EDEMA,TOTAL KNEE ARTHROPLASTY,RIGHT. COMPARISON: None. TECHNIQUE: Real-time sonographic vascular imaging was performed by the music industry intern through the lower extremity utilizing both color-flow and Doppler spectral analysis. Multiple promotions representative static nadia ges were saved for review. FINDINGS: Common Femoral Vein (CFV): Normal. CFV-GSV Junction: Normal. Profunda Femoral Vein (PFV): Normal. Femoral Vein (FV) Prox: Normal. Femoral Vein (FV) Mid: Normal. Femoral Vein (FV) Dist: Normal. Limited Popliteal Vein: Appears patent, not well seen. Limited Posterior Tibial Veins: Limited visualization. Peroneal Veins: Limited visualization. Contralateral Side CFV: Normal. Other: Complex partially echogenic fluid collection seen in the popliteal fossa measuring 5.3 x 1.6 x 2 cm, could represent a partially liquefied hematoma or hemorrhagic Moreno's cyst. Calf edema. Calf veins not well seen. IMPRESSION: 1. No evidence for deep venous thrombosis. Limited visualization as above. 2. Complex partially echogenic fluid collection seen in the popliteal fossa measuring 5.3 x 1.6 x 2 c m, could represent a partially liquefied hematoma or hemorrhagic Moreno's cyst. [facility] Referring Provider Line: [phone] SITE ID: [id number]
== END 2017-04-11 20:43 | disposition home or self-care (01) ==
LOC: DI 20:42
PROVIDERS: ATTEND Physician Assistant Medical
DX: M25.461 Effusion, right knee (principal); Z96.651 Presence of right artificial knee joint

== ENCOUNTER 2017-06-11 08:00 | Outpatient (CLI) | payer MEDICARE ==
[2017-06-11 19:45] LABS: BASOPHILS % (AUTO) 0.5 %; EOSINOPHILS # (AUTO) 0.3 10^3/uL (0.0-0.7); EOSINOPHILS % (AUTO) 3.9 %; HGB - HEMOGLOBIN 11.6 g/dL (12.0-16.0); LYMPHOCYTES # (AUTO) 1.1 10^3/uL (1.5-3.5); LYMPHOCYTES % (AUTO) 15.8 %; MEAN CORPUSCULAR HEMOGLOBIN 29.7 pg (27.0-31.0); MEAN CORPUSCULAR HGB CONC 33.5 g/dL (32.0-36.0); MEAN CORPUSCULAR VOLUME 88.6 fL (81.0-99.0); MEAN PLATELET VOLUME 8.4 fL (7.9-10.8); MONOCYTES # (AUTO) 0.5 10^3/uL (0.0-1.0); MONOCYTES % (AUTO) 7.8 %; NEUTROPHILS # (AUTO) 4.9 10^3/uL (1.5-6.6); PLT - PLATELET COUNT 241 10^3/uL (130-450); WHITE BLOOD COUNT 6.8 x10^3/uL (4.8-10.8)
[2017-06-11 20:11] LABS: % IRON SATURATION 23 % (20-50); ALBUMIN 4.1 g/dL (3.2-5.5); ALBUMIN/GLOBULIN RATIO 1.5 (1.0-2.2); ALKALINE PHOSPHATASE 53 IU/L (42-121); ALT ALANINE AMINOTRANSFERASE 17 IU/L (10-60); AST ASPARTATE AMINOTRANSFERASE 25 IU/L (10-42); BILIRUBIN,TOTAL 0.3 mg/dL (0.2-1.0); BUN - BLOOD UREA NITROGEN 23 mg/dL (6-20); CALCIUM 10.3 mg/dL (8.5-10.3); CARBON DIOXIDE - CO2 24 mmol/L (21-32); CHLORIDE 103 mmol/L (101-111); CHOLESTEROL 132 mg/dL; CREATININE 1.3 mg/dL (0.4-1.0); GFR - MDRD 40 (>89); GLUCOSE 88 mg/dL (70-100); HDL CHOLESTEROL 44 mg/dL; IRON 71 ug/dL (28-170); LDL CHOLESTEROL,CALCULATED 42 mg/dL; SODIUM 136 mmol/L (135-145); TOTAL IRON BINDING CAPACITY 309 ug/dL (250-450); TOTAL PROTEIN 6.9 g/dL (6.7-8.2); TRANSFERRIN 221 mg/dL (192-382); VLDL CHOLESTEROL 46 mg/dL
[2017-06-11 20:16] LABS: HB2 TOTAL 12.3 g/dL; HEMOGLOBIN A1C 0.48 g/dL; HEMOGLOBIN A1C % 5.7 % (4.6-6.2)
[2017-06-11 20:21] LABS: THYROID STIMULATING HORMONE 2.69 uIU/mL (0.34-5.60)
[2017-06-11 20:25] LABS: FERRITIN 57.5 ng/mL (11.0-306.8)
== END 2017-06-11 08:01 | disposition home or self-care (01) ==
LOC: LAB.WCP 08:00
PROVIDERS: ATTEND Family Medicine
DX: I10 Essential (primary) hypertension (principal); E53.8 Deficiency of other specified B group vitamins; D64.9 Anemia, unspecified; E11.9 Type 2 diabetes mellitus without complications; E03.9 Hypothyroidism, unspecified
CPT/HCPCS: 36415; 80053; 80061; 82607; 82728; 83036; 83540; 83721; 84443; 84466; 85025

== ENCOUNTER 2017-12-13 09:55 | Outpatient (CLI) | payer MEDICARE ==
[2017-12-13 12:28] LABS: BASOPHILS % (AUTO) 0.6 %; EOSINOPHILS # (AUTO) 0.2 10^3/uL (0.0-0.7); EOSINOPHILS % (AUTO) 3.6 %; LYMPHOCYTES # (AUTO) 1.2 10^3/uL (1.5-3.5); LYMPHOCYTES % (AUTO) 21.4 %; MEAN CORPUSCULAR HEMOGLOBIN 31.1 pg (27.0-31.0); MEAN CORPUSCULAR HGB CONC 33.9 g/dL (32.0-36.0); MEAN CORPUSCULAR VOLUME 91.8 fL (81.0-99.0); MEAN PLATELET VOLUME 8.6 fL (7.9-10.8); MONOCYTES # (AUTO) 0.5 10^3/uL (0.0-1.0); MONOCYTES % (AUTO) 7.9 %; NEUTROPHILS # (AUTO) 3.8 10^3/uL (1.5-6.6); NEUTROPHILS % (AUTO) 66.5 %; PLT - PLATELET COUNT 244 10^3/uL (130-450); RED BLOOD COUNT 3.53 10^6/uL (4.20-5.40); RED CELL DISTRIBUTION WIDTH 13.4 % (12.0-15.0); WHITE BLOOD COUNT 5.7 x10^3/uL (4.8-10.8)
[2017-12-13 12:58] LABS: ALBUMIN 3.7 g/dL (3.2-5.5); ALBUMIN/GLOBULIN RATIO 1.2 (1.0-2.2); ALKALINE PHOSPHATASE 53 IU/L (42-121); ALT ALANINE AMINOTRANSFERASE 16 IU/L (10-60); AST ASPARTATE AMINOTRANSFERASE 22 IU/L (10-42); BILIRUBIN,TOTAL 0.7 mg/dL (0.2-1.0); BUN - BLOOD UREA NITROGEN 23 mg/dL (6-20); CALCIUM 10.3 mg/dL (8.5-10.3); CARBON DIOXIDE - CO2 25 mmol/L (21-32); CHLORIDE 103 mmol/L (101-111); CHOLESTEROL 127 mg/dL; CREATININE 1.2 mg/dL (0.4-1.0); GFR - MDRD 43 (>89); GLUCOSE 89 mg/dL (70-100); HDL CHOLESTEROL 43 mg/dL; LDL CHOLESTEROL,CALCULATED 56 mg/dL; LDL/HDL RATIO 1.3 (<4.4); SODIUM 136 mmol/L (135-145); TOTAL PROTEIN 6.7 g/dL (6.7-8.2); VLDL CHOLESTEROL 28 mg/dL
[2017-12-13 13:16] LABS: HB2 TOTAL 11.3 g/dL; HEMOGLOBIN A1C 0.42 g/dL; HEMOGLOBIN A1C % 5.6 % (4.6-6.2)
== END 2017-12-13 09:56 ==
LOC: LAB.WCP 09:55
PROVIDERS: ATTEND Physician Assistant Medical
DX: I10 Essential (primary) hypertension (principal); E78.00 Pure hypercholesterolemia, unspecified; E11.9 Type 2 diabetes mellitus without complications
CPT/HCPCS: 36415; 80053; 80061; 82043; 83036; 83721; 84443; 85025

== ENCOUNTER 2018-02-08 08:00 | Outpatient (CLI) | payer MEDICARE ==
[2018-02-08 12:48] LABS: BASOPHILS % (AUTO) 0.7 %; EOSINOPHILS # (AUTO) 0.2 10^3/uL (0.0-0.7); EOSINOPHILS % (AUTO) 3.2 %; HGB - HEMOGLOBIN 10.9 g/dL (12.0-16.0); LYMPHOCYTES # (AUTO) 1.2 10^3/uL (1.5-3.5); LYMPHOCYTES % (AUTO) 19.4 %; MEAN CORPUSCULAR HEMOGLOBIN 31.3 pg (27.0-31.0); MEAN CORPUSCULAR HGB CONC 33.9 g/dL (32.0-36.0); MEAN CORPUSCULAR VOLUME 92.3 fL (81.0-99.0); MEAN PLATELET VOLUME 8.5 fL (7.9-10.8); MONOCYTES # (AUTO) 0.6 10^3/uL (0.0-1.0); MONOCYTES % (AUTO) 8.9 %; NEUTROPHILS # (AUTO) 4.3 10^3/uL (1.5-6.6); NEUTROPHILS % (AUTO) 67.8 %; PLT - PLATELET COUNT 220 10^3/uL (130-450); RED BLOOD COUNT 3.49 10^6/uL (4.20-5.40); RED CELL DISTRIBUTION WIDTH 13.9 % (12.0-15.0); WHITE BLOOD COUNT 6.3 x10^3/uL (4.8-10.8)
[2018-02-08 13:17] LABS: % IRON SATURATION 21 % (20-50); IRON 71 ug/dL (28-170); TOTAL IRON BINDING CAPACITY 336 ug/dL (250-450); TRANSFERRIN 240 mg/dL (192-382)
== END 2018-02-08 23:59 | disposition home or self-care (01) ==
LOC: LAB.WCP 08:00
PROVIDERS: ATTEND Family Medicine
DX: E53.8 Deficiency of other specified B group vitamins (principal); D64.9 Anemia, unspecified
CPT/HCPCS: 36415; 82607; 82728; 83540; 84466; 85025

== ENCOUNTER 2018-02-14 13:00 | Outpatient (CLI) | payer MEDICARE ==
--- NOTE | 2018-02-18 09:30 | DEXA Report ---
Reason: BONE DISORDER Procedure Date: 02/14/2018 Accession Number: [id number] / [id number] Procedure: DEX - Dexa Spine and/or Hip CPT Code: FULL RESULT: EXAM: Dexa Spine and/or Hip, Dexa Forearm DATE: 02/14/2018 2:35 PM CLINICAL HISTORY: BONE DISORDER TECHNIQUE: Dual energy x-ray absorptiometry (DXA) was performed on a [employer] System. Regions measured are the AP Spine, femoral neck, and if needed forearm. COMPARISON: None. In accordance with the International Society for Clinical Densitometry (ISCD) guidelines, data from previous exams may be reanalyzed using current recommendations and techniques. This is done to allow a more accurate basis for comparison with the current study. FINDINGS: The data for the hip is as follows: BMD (g/cm/cm) T-SCORE Z-SCORE REGION Neck 0.778 -1.9 -0.2 TOTAL 0.755 -2.0 -0.5 NOTE: The femoral neck or total proximal femur, whichever is lowest, is used for classification. The data for the left forearm is as follows: BMD (g/cm/cm) T-SCORE Z-SCORE REGION 1/3 0.565 -3.6 -0.9 NOTE: The 33% radius of the nondominant forearm is used for classification. IMPRESSION: THE WHO CLASSIFICATION BASED ON THE INTERNATIONAL REFERENCE STANDARD IS OSTEOPOROSIS. THE FRACTURE RISK IS HIGH. RECOMMENDATION: Patients with diagnosis of osteoporosis or osteopenia should have regular bone mineral density assessment. For those eligible for Medicare, routine testing is allowed once every 2 years. Testing frequency can be increased for patients who have rapidly progressing disease or for those who are receiving medical therapy to restore bone mass. COMMENT: World Health Organization (WHO) definitions for osteoporosis and osteopenia: NORMAL BMD: T-score at -1.0 or higher, fracture risk is low OSTEOPENIA BMD: T-score between -1.0 and -2.5, fracture risk is increased. OSTEOPOROSIS BMD: T-score at -2.5 or lower, fracture risk is high. National Osteoporosis Foundation recommends: 1. Obtain adequate dietary calcium (at least 1200 mg per day) and vitamin D (400-800 international units per day). 2. Participate, as appropriate, in regular weightbearing and muscle-strengthening exercise. 3. Avoid tobacco use and reduce alcohol and caffeine intake. 4. For more detailed information see the website at www.NOF.org.
--- NOTE | 2018-02-18 09:30 | DEXA Report ---
Reason: BONE DISORDER Procedure Date: 02/14/2018 Accession Number: [id number] / [id number] Procedure: DEX - Dexa Forearm CPT Code: FULL RESULT: EXAM: Dexa Spine and/or Hip, Dexa Forearm DATE: 02/14/2018 2:35 PM CLINICAL HISTORY: BONE DISORDER TECHNIQUE: Dual energy x-ray absorptiometry (DXA) was performed on a [employer] System. Regions measured are the AP Spine, femoral neck, and if needed forearm. COMPARISON: None. In accordance with the International Society for Clinical Densitometry (ISCD) guidelines, data from previous exams may be reanalyzed using current recommendations and techniques. This is done to allow a more accurate basis for comparison with the current study. FINDINGS: The data for the hip is as follows: BMD (g/cm/cm) T-SCORE Z-SCORE REGION Neck 0.778 -1.9 -0.2 TOTAL 0.755 -2.0 -0.5 NOTE: The femoral neck or total proximal femur, whichever is lowest, is used for classification. The data for the left forearm is as follows: BMD (g/cm/cm) T-SCORE Z-SCORE REGION 1/3 0.565 -3.6 -0.9 NOTE: The 33% radius of the nondominant forearm is used for classification. IMPRESSION: THE WHO CLASSIFICATION BASED ON THE INTERNATIONAL REFERENCE STANDARD IS OSTEOPOROSIS. THE FRACTURE RISK IS HIGH. RECOMMENDATION: Patients with diagnosis of osteoporosis or osteopenia should have regular bone mineral density assessment. For those eligible for Medicare, routine testing is allowed once every 2 years. Testing frequency can be increased for patients who have rapidly progressing disease or for those who are receiving medical therapy to restore bone mass. COMMENT: World Health Organization (WHO) definitions for osteoporosis and osteopenia: NORMAL BMD: T-score at -1.0 or higher, fracture risk is low OSTEOPENIA BMD: T-score between -1.0 and -2.5, fracture risk is increased. OSTEOPOROSIS BMD: T-score at -2.5 or lower, fracture risk is high. National Osteoporosis Foundation recommends: 1. Obtain adequate dietary calcium (at least 1200 mg per day) and vitamin D (400-800 international units per day). 2. Participate, as appropriate, in regular weightbearing and muscle-strengthening exercise. 3. Avoid tobacco use and reduce alcohol and caffeine intake. 4. For more detailed information see the website at www.NOF.org.
== END 2018-02-14 13:01 | disposition home or self-care (01) ==
LOC: DI 13:00
PROVIDERS: ATTEND Family Medicine
DX: M81.0 Age-related osteoporosis without current pathological fracture (principal)
CPT/HCPCS: 77080; 77081

== ENCOUNTER 2018-02-14 13:03 | Outpatient (CLI) | payer MEDICARE ==
--- NOTE | 2018-02-27 13:32 | Mammography Report ---
Reason: SCREENING MAMMO Procedure Date: 02/14/2018 Accession Number: [id number] / [id number] Procedure: FAM - Screening Mammo w/Harrison CPT Code: FULL RESULT: EXAM: Screening Mammo w/Harrison DATE: 02/14/2018 4:26 PM CLINICAL HISTORY: Routine screening TECHNIQUE: Bilateral CC and MLO views were obtained. COMPARISON: 05/03/2015, 04/30/2014, 04/29/2013 and 04/24/2012 FINDINGS: There is extensive fatty replacement of the breast tissue. No significant interval change. No suspicious masses, clustered microcalcifications, or regions of architectural distortion are identified. IMPRESSION: Benign findings RECOMMENDATION: Routine annual screening unless otherwise clinically indicated. BIRADS CATEGORY 2: Benign findings STANDARD QUALIFYING STATEMENTS: 1. This examination was not reviewed with the aid of Computer-Aided Detection (CAD). 2. A negative or benign imaging report should not delay biopsy if clinically suspicious findings are present. Consider surgical consultation if warrented. More than 5% of cancers are not identified by imaging. 3. Dense breasts may obscure an underlying neoplasm. 4. This examination was reviewed with the aid of 3D breast imaging (tomosynthesis).
== END 2018-02-14 13:04 | disposition home or self-care (01) ==
LOC: DI 13:03
DX: Z12.31 Encounter for screening mammogram for malignant neoplasm of breast (principal)
CPT/HCPCS: 77063; 77067

== ENCOUNTER 2018-07-23 08:00 | Outpatient (CLI) | payer MEDICARE ==
[2018-07-23 15:01] LABS: CALCIUM 10.6 mg/dL (8.5-10.3); CREATININE 1.4 mg/dL (0.4-1.0)
[2018-07-23 15:02] LABS: HB2 TOTAL 10.5 g/dL; HEMOGLOBIN A1C 0.41 g/dL; HEMOGLOBIN A1C % 5.7 % (4.6-6.2)
== END 2018-07-23 23:59 | disposition home or self-care (01) ==
LOC: LAB.WCP 08:00
PROVIDERS: ATTEND Family Medicine
DX: E11.9 Type 2 diabetes mellitus without complications (principal); E83.52 Hypercalcemia
CPT/HCPCS: 36415; 80048; 82043; 83036; 83970

== ENCOUNTER 2018-08-07 11:13 | Outpatient (CLI) | payer MEDICARE ==
--- NOTE | 2018-08-07 17:32 | Nuclear Medicine Report ---
Reason: HYPERPARATHYROIDISM Procedure Date: 08/07/2018 Accession Number: [id number] / [id number] Procedure: NM - Parathyroid SPECT Imaging CPT Code: FULL RESULT: EXAM: PARATHYROID SCAN WITH SESTAMIBI, PLANAR AND SPECT IMAGING EXAM DATE: 08/07/2018 04:13 PM. CLINICAL HISTORY: Hyperparathyroidism. COMPARISON: None. TECHNIQUE: Following the intravenous administration of 27.0 mCi Tc-99m sestamibi, planar images of the neck and upper chest were acquired immediately, and at one and two hours post injection. Additionally, a SPECT image was acquired according to the protocol; images were reconstructed in the axial, coronal, and sagittal projections. FINDINGS: Planar images: Expected physiologic uptake. None delayed images there is asymmetric mild focal uptake near the lower pole of the right thyroid lobe. SPECT images: Asymmetric focal uptake near the lower pole of the right thyroid lobe. No evidence of ectopic parathyroid adenoma. No significant abnormalities in the remainder of the study. IMPRESSION: Scintigraphic findings are consistent with a parathyroid adenoma near the lower pole of the right thyroid lobe. Further anatomic correlation with thyroid ultrasound can be obtained. [facility] ADDENDUM: 08/08/18 17:27 Corrected TECHNIQUE: Following the intravenous administration of 27.0 mCi Tc-99m sestamibi, planar images of the neck and upper chest were acquired immediately, and at one and three hours post injection. Additionally,SPECT images were acquired immediately and after a three-hour delay according to the protocol; images were reconstructed in the axial, coronal, and sagittal projections. Additional findings/IMPRESSION: Additional comparison is made to parathyroid scan of 10/27/2015. The focus of uptake near the lower pole of the right thyroid lobe seen on the current study is not clearly seen on the prior study.
== END 2018-08-07 11:14 | disposition home or self-care (01) ==
LOC: DI 11:13
PROVIDERS: ATTEND Family Medicine
DX: E21.3 Hyperparathyroidism, unspecified (principal)
CPT/HCPCS: 78070

== ENCOUNTER 2018-09-27 05:57 | Day surgery (SDC) | payer MEDICARE ==
[2018-09-27] MEDS ORDERED: CEFAZOLIN SODIUM IN 0.9 % NACL 2 GM/100 ML BAG IV ONE (06:36)
[2018-09-27] MEDS ORDERED: LACTATED RINGERS 1,000 ML IV ONE ×2 (06:58→13:39)
--- NOTE | 2018-09-27 07:17 | ANESTHESIA ---
Pre-Anesthesia VS, & Labs - Diagnosis Hyperparathyroidism - Procedure Right lower parathyroidectomy Vital Signs: Temp Pulse Resp BP Pulse Ox 36 C L 45 L 16 148/63 H 99 09/27/18 06:41 09/27/18 06:41 09/27/18 06:41 09/27/18 06:41 09/27/18 06:41 Height 5 ft 3 in Weight (kg) 87.7 kg Body Mass Index 32.8 - NPO >8 hours - Is Patient ?: No - Lab Results Current Lab Results: Laboratory Tests 09/27/18 06:56: POC Whole Bld Glucose 93 Home Medications and Allergies Home Medications: Ambulatory Orders Acetaminophen [Tylenol Arthritis] 1,300 mg PO BID 09/24/18 Alendronate [Fosamax] 70 mg PO Q7D 09/24/18 Cyanocobalamin (Vitamin B-12) [Vitamin B-12] 2,000 mcg PO DAILY 09/24/18 Gabapentin 300 mg PO QPM 09/24/18 Labetalol [Trandate] 100 mg PO BID 09/24/18 Levothyroxine [Synthroid] 25 mcg PO QDAC 09/24/18 [place]-3S/Dha/Epa/Fish Oil [[place]-3 Fish Oil 1,200 mg Sfgl] 1 each PO DAILY 09/24/18 Potassium Chloride 20 meq PO DAILY 09/24/18 Tramadol HCl [Ultram] 50 mg PO Q4H PRN 09/24/18 Acetaminophen [Tylenol Arthritis] 1,300 mg PO BID 09/24/18 Alendronate [Fosamax] 70 mg PO Q7D 09/24/18 Cyanocobalamin (Vitamin B-12) [Vitamin B-12] 2,000 mcg PO DAILY 09/24/18 Gabapentin 300 mg PO QPM 09/24/18 Labetalol [Trandate] 100 mg PO BID 09/24/18 Levothyroxine [Synthroid] 25 mcg PO QDAC 09/24/18 [place]-3S/Dha/Epa/Fish Oil [[place]-3 Fish Oil 1,200 mg Sfgl] 1 each PO DAILY 09/24/18 Potassium Chloride 20 meq PO DAILY 09/24/18 Tramadol HCl [Ultram] 50 mg PO Q4H PRN 09/24/18 Allergies/Adverse Reactions: Allergies Allergy/AdvReac Type Severity Reaction Status Date / Time No Known Drug Allergies Allergy Verified 02/04/16 12:55 Anes History & Medical History - Anesthetic History Anesthesia Complications: reports: No previous complications - Medical History Cardiovascular: reports: Hypertension, High cholesterol, Murmur Pulmonary: reports: None Gastrointestinal: reports: Ulcers Urinary: reports: Incontinence, Other (left kidney mass) Neuro: reports: None Musculoskeletal: reports: Osteoarthritis, Chronic back pain Endocrine/Autoimmune: reports: Type 2 diabetes, Other (hyperparathyroidism) Blood Disorders: reports: None Skin: reports: None Smoking Status: Never smoker Psychosocial: reports: Alcohol (occassional) - Surgical History General: Colonoscopy Eyes Ears Nose Throat (EENT): Cataracts, Other Urologic: Bladder surgery Gynecologic: Hysterectomy Orthopedic: Knee replacement, Carpal Tunnel surgery, Spine surgery (L3-5 fusion) Exam General: Alert, Oriented x3, Cooperative, No acute distress Dental: Dentures full Upper, Partials Lower Mouth Openin Fingerbreadth Neck Mobility: Normal Mallampati classification: II Thyromental Distance: less than 4 cm Respiratory: Lungs clear, Normal breath sounds, No respiratory distress, No accessory muscle use Cardiovascular: Regular rate, Normal S1, Normal S2, No murmurs Mental/Cognitive Status: Alert/Oriented X3, Normal for patient Plan Anesthesia Type: General Consent for Procedure(s) Verified and Reviewed: Yes Code Status: Attempt Resuscitation ASA classification: 2-Mild systemic disease Is this case an emergency?: No
--- NOTE | 2018-09-27 07:20 | ANESTHESIA ---
Pre-Anesthesia VS, & Labs - Diagnosis Hyperparathyroidism - Procedure Right parathroidectomy Vital Signs: Temp Pulse Resp BP Pulse Ox 36 C L 45 L 16 148/63 H 99 09/27/18 06:41 09/27/18 06:41 09/27/18 06:41 09/27/18 06:41 09/27/18 06:41 Height 5 ft 3 in Weight (kg) 87.7 kg Body Mass Index 32.8 - NPO >8 hours - Is Patient ?: No - Lab Results Current Lab Results: Laboratory Tests 09/27/18 06:56: POC Whole Bld Glucose 93 Lab results reviewed: Yes Fish Bones: 09/28/18 04:50 Home Medications and Allergies Home Medications: Ambulatory Orders Acetaminophen [Tylenol Arthritis] 1,300 mg PO BID 09/24/18 Alendronate [Fosamax] 70 mg PO Q7D 09/24/18 Cyanocobalamin (Vitamin B-12) [Vitamin B-12] 2,000 mcg PO DAILY 09/24/18 Labetalol [Trandate] 100 mg PO BID 09/24/18 Levothyroxine [Synthroid] 25 mcg PO QDAC 09/24/18 [place]-3S/Dha/Epa/Fish Oil [[place]-3 Fish Oil 1,200 mg Sfgl] 1 each PO DAILY 09/24/18 RX: Gabapentin 300 mg PO QPM 09/24/18 RX: Potassium Chloride 20 meq PO DAILY 09/24/18 Tramadol HCl [Ultram] 50 mg PO Q4H PRN 09/24/18 Acetaminophen [Tylenol Arthritis] 1,300 mg PO BID 09/24/18 Alendronate [Fosamax] 70 mg PO Q7D 09/24/18 Cyanocobalamin (Vitamin B-12) [Vitamin B-12] 2,000 mcg PO DAILY 09/24/18 Gabapentin 300 mg PO QPM 09/24/18 Labetalol [Trandate] 100 mg PO BID 09/24/18 Levothyroxine [Synthroid] 25 mcg PO QDAC 09/24/18 [place]-3S/Dha/Epa/Fish Oil [[place]-3 Fish Oil 1,200 mg Sfgl] 1 each PO DAILY 09/24/18 Potassium Chloride 20 meq PO DAILY 09/24/18 Tramadol HCl [Ultram] 50 mg PO Q4H PRN 09/24/18 Allergies/Adverse Reactions: Allergies Allergy/AdvReac Type Severity Reaction Status Date / Time No Known Drug Allergies Allergy Verified 02/04/16 12:55 Anes History & Medical History - Anesthetic History Anesthesia Complications: reports: No previous complications Family history of Anesthesia Complications: Denies Family history of Malignant Hyperthermia: Denies - Medical History Cardiovascular: reports: Hypertension, High cholesterol, Murmur Pulmonary: reports: None Gastrointestinal: reports: Ulcers Urinary: reports: Incontinence Musculoskeletal: reports: Osteoarthritis, Chronic back pain Endocrine/Autoimmune: reports: Type 2 diabetes, Other Skin: reports: None - Surgical History General: Colonoscopy Eyes Ears Nose Throat (EENT): Cataracts, Other Urologic: Bladder surgery Gynecologic: Hysterectomy Orthopedic: Knee replacement, Carpal Tunnel surgery, Spine surgery Exam General: Alert, Oriented x3 Mouth Opening: Greater than 4 Fingerbreadths Neck Mobility: Normal Mallampati classification: II Respiratory: Lungs clear Plan Anesthesia Type: General Consent for Procedure(s) Verified and Reviewed: Yes Code Status: Attempt Resuscitation ASA classification: 3-Severe systemic disease Is this case an emergency?: No
[2018-09-27] MEDS ORDERED: BUPIVACAINE 0.5% PF 10 ML VIAL ONE (07:23)
[2018-09-27] MEDS ORDERED: LIDOCAINE-MPF 2% 5 ML VIAL IM ONE (13:30)
[2018-09-27] MEDS ORDERED: PROPOFOL 200 MG/20 ML VIAL IVP ONE (13:30)
[2018-09-27] MEDS ORDERED: fentaNYL 100 MCG/2 ML VIAL IVP ONE (13:30)
[2018-09-27] MEDS ORDERED: DEXAMETHASONE 4 MG/ML VIAL IVP ONE (13:30)
[2018-09-27] MEDS ORDERED: ONDANSETRON 4 MG/2 ML VIAL IVP ONE (13:30)
[2018-09-27] MEDS ORDERED: ROCURONIUM 50 MG/5 ML VIAL IVP ONE (13:30)
[2018-09-27] MEDS ORDERED: SODIUM CHLORIDE FLUSH 0.9% 10 ML SYRINGE IVP PRN ×2 (14:53→21:15)
[2018-09-27] MEDS ORDERED: HYDROmorphone 0.5 MG/0.5 ML SYRINGE IVP PRN ×2 (14:53→21:14)
[2018-09-27] MEDS ORDERED: oxyCODONE 5 MG TABLET PO PRN ×2 (14:53→21:14)
[2018-09-27] MEDS ORDERED: ACETAMINOPHEN 325 MG TABLET PO PRN ×2 (14:53→20:59)
[2018-09-27] MEDS ORDERED: ONDANSETRON 4 MG/2 ML VIAL IVP PRN ×2 (14:53→21:14)
[2018-09-27] MEDS ORDERED: D5NS W/20 MEQ KCL 1,000 ML IV SCH (15:00)
[2018-09-27] MEDS: fentaNYL 100 MCG/2 ML VIAL ONE ×3 (15:18→15:40)
[2018-09-27 15:24] LABS: ALBUMIN 3.4 g/dL (3.2-5.5); ALBUMIN/GLOBULIN RATIO 1.2 (1.0-2.2); BILIRUBIN,TOTAL 0.7 mg/dL (0.2-1.0); CALCIUM 9.9 mg/dL (8.5-10.3); CREATININE 1.4 mg/dL (0.4-1.0); PHOSPHORUS 3.3 mg/dL (2.5-4.6); TOTAL PROTEIN 6.2 g/dL (6.7-8.2)
[2018-09-27] MEDS ORDERED: CALCIUM CARBONATE CHEW 500 MG TABLET PO SCH (16:00)
[2018-09-27] MEDS ORDERED: MAGNESIUM OXIDE 400 MG TABLET PO SCH (16:00)
[2018-09-27] MEDS ORDERED: CALCITRIOL 0.25 MCG CAPSULE PO SCH (17:00)
[2018-09-27] MEDS ORDERED: CHOLECALCIFEROL 5,000 UNIT CAPSULE PO SCH (17:00)
[2018-09-27] MEDS ORDERED: SODIUM CHLORIDE FLUSH 0.9% 10 ML SYRINGE IVP SCH (17:00)
[2018-09-27] MEDS ORDERED: HYDROmorphone 0.5 MG/0.5 ML SYRINGE ONE (18:09)
[2018-09-27] MEDS ORDERED: MAGNESIUM OXIDE 400 MG TABLET PO ONE (18:38)
[2018-09-27] MEDS ORDERED: CALCIUM CARBONATE CHEW 500 MG TABLET ONE (18:38)
[2018-09-27] MEDS ORDERED: CHOLECALCIFEROL 5,000 UNIT CAPSULE PO ONE (18:38)
[2018-09-27] MEDS ORDERED: oxyCODONE 5 MG TABLET ONE (18:39)
[2018-09-27] MEDS ORDERED: CALCITRIOL 0.25 MCG CAPSULE PO ONE (18:39)
[2018-09-27] MEDS: DEXTROSE 5%-0.9% NACL 1,000 ML IV SCH (19:29)
[2018-09-27] MEDS: CALCIUM CARBONATE CHEW 500 MG TABLET PO SCH (21:59)
[2018-09-28] MEDS: SODIUM CHLORIDE FLUSH 0.9% 10 ML SYRINGE IVP SCH ×2 (01:53→09:16)
[2018-09-28 05:25] LABS: ALBUMIN 3.3 g/dL (3.2-5.5); ALBUMIN/GLOBULIN RATIO 1.2 (1.0-2.2); BILIRUBIN,TOTAL 0.6 mg/dL (0.2-1.0); CREATININE 1.2 mg/dL (0.4-1.0); PHOSPHORUS 2.7 mg/dL (2.5-4.6); TOTAL PROTEIN 6.1 g/dL (6.7-8.2)
[2018-09-28] MEDS: CALCIUM CARBONATE CHEW 500 MG TABLET PO SCH (06:48)
[2018-09-28 08:00] VITALS: BP 147/55
[2018-09-28] MEDS ORDERED: MAGNESIUM OXIDE 400 MG TABLET PO SCH (08:00)
[2018-09-28] MEDS ORDERED: CALCITRIOL 0.25 MCG CAPSULE PO SCH (09:00)
[2018-09-28] MEDS ORDERED: CHOLECALCIFEROL 5,000 UNIT CAPSULE PO SCH (09:00)
[2018-09-28] MEDS: DEXTROSE 5%-0.9% NACL 1,000 ML IV SCH (09:14)
--- NOTE | 2018-09-28 12:25 | PROVIDER PROGRESS NOTE ---
Subjective - General Procedure Date: 09/27/18 Post Op Days: 1 Procedure Performed: RIGHT lower parathyroidectomy - Review of Systems Wound/Incisions: positive: Healing well General: positive: No symptoms HEENT: positive: No symptoms Pulmonary: positive: No symptoms Cardiovascular: positive: No symptoms Gastrointestinal: positive: No symptoms Genitourinary: positive: No symptoms Musculoskeletal: positive: No symptoms Skin: positive: No symptoms Psychiatric: positive: No symptoms Objective - Patient Data Reviewed Vital Signs: Yes Vital Signs: Vital Signs x48h Temp Pulse Resp BP Pulse Ox 09/28/18 08:00 36.9 C 68 16 147/55 H 95 Weight: Weight 09/26/18 09/27/18 09/28/18 23:59 23:59 23:59 Weight (kg) 87.7 kg Intake & Output: Intake and Output Totals x24h 09/26/18 09/27/18 09/28/18 23:59 23:59 23:59 Intake Total 850 1125 Output Total 15 Balance 835 1125 - Lab Results Lab Results: 09/28/18 04:50 Other Lab Results: Lab Results x24hrs 09/28/18 09/27/18 Range/Units 04:50 15:06 Sodium 140 139 (135-145) mmol/L Potassium 4.8 5.2 H (3.5-5.0) mmol/L Chloride 110 109 (101-111) mmol/L Carbon Dioxide 23 21 (21-32) mmol/L Anion Gap 7.0 9.0 (6-13) BUN 35 H 41 H (6-20) mg/dL Creatinine 1.2 H 1.4 H (0.4-1.0) mg/dL Estimated GFR (MDRD) 43 L 36 L (>89) Glucose 130 H 92 (70-100) mg/dL Calcium 10.0 9.9 (8.5-10.3) mg/dL Phosphorus 2.7 3.3 (2.5-4.6) mg/dL Total Bilirubin 0.6 0.7 (0.2-1.0) mg/dL AST 16 18 (10-42) IU/L ALT 13 12 (10-60) IU/L Alkaline Phosphatase 37 L 37 L (42-121) IU/L Total Protein 6.1 L 6.2 L (6.7-8.2) g/dL Albumin 3.3 3.4 (3.2-5.5) g/dL Globulin 2.8 2.8 (2.1-4.2) g/dL Albumin/Globulin Ratio 1.2 1.2 (1.0-2.2) - Current Medications Current Medications: Current Medications Generic Name Dose Route Start Last Admin Trade Name Freq PRN Reason Stop Dose Admin Acetaminophen 325 mg 09/27/18 20:59 09/28/18 06:52 Tylenol PO 325 mg Q4HR PRN Administration PAIN Calcitriol 0.25 mcg 09/28/18 09:00 09/28/18 09:13 Rocaltrol PO 0.25 mcg DAILY MONIKA Administration Calcium Carbonate/Glycine 1,000 mg 09/27/18 22:00 09/28/18 06:48 Tums PO 1,000 mg TID MONIKA Administration Cholecalciferol 5,000 unit 09/28/18 09:00 09/28/18 09:13 Vitamin D3 PO 5,000 unit DAILY MONIKA Administration Hydromorphone HCl 0.5 mg 09/27/18 21:14 09/27/18 22:05 Dilaudid Inj Syringe IVP 0.5 mg Q2H PRN Administration PAIN Dextrose/Sodium Chloride 1,000 mls @ 60 mls/hr 09/27/18 18:00 09/28/18 09:14 D5ns IV 60 mls/hr .[id number] MONIKA Administration Magnesium Oxide 400 mg 09/28/18 08:00 09/28/18 09:14 Mag Ox PO 400 mg DAILYWM MONIKA Administration Oxycodone HCl 5 mg 09/27/18 21:14 09/28/18 03:16 Roxicodone PO 5 mg Q4HR PRN Administration PAIN Sodium Chloride 10 ml 09/28/18 01:00 09/28/18 09:16 Normal Saline Flush 0.9% IVP Not Given 0100,0900,1700 [facility] - Physical Exam Wound/Incisions: positive: Healing well, Other (Stitches removed and Dermabond applied.) General Appearance: positive: No acute distress Eyes Bilateral: positive: No lid inflammation, Conjunctivae nml, No scleral i cterus ENT: positive: No signs of dehydration Neck: positive: Trachea midline Skin: positive: Color nml Extremities: positive: Non-tender, Nml appearance Neurologic/Psychiatric: positive: Oriented x3, Motor nml, Sensation nml, Mood/affect nml ABX Reporting Has patient been on IV antibiotics over the past 48 hours?: Yes Impression/Plan - Problem List Problem List: D1 s/p RIGHT lower parathyroidectomy Okay to discharge home. Calcium stable no paresthesias. Stitches out. Wound looks good. Patient instructed on wound care and Calcium and Vitamin D supplementation.
--- NOTE | 2018-09-28 12:26 | OPERATIVE REPORT ---
Operative Report - General Planned Procedure: RIGHT lower parathyroidectomy Pre-Op Diagnosis: Hyperparathyroidism Procedure Performed: RIGHT lower parathyroidectomy Post Op Diagnosis: Same - Procedure Note Primary Surgeon: Cristopher Black MD Anesthesia Provider: Ludwin Soliz CRNA Anesthesia Technique: General ET tube IV Fluids (mL): 800 Estimated Blood Loss (mL): 10 Drain/Tube Type: Other (None.) Complications: None. - Other Other Information/Narrative: OPERATIVE DESCRIPTION/REPORT: After verbal and written informed consent was obtained detailing the risks of infection, bleeding requiring transfusion with its risks, nerve injury, and , and after I met with the patient confirming the surgery and the site of the surgery, the patient was brought to the operative suite and placed supine on the operating table. Great care was taken to avoid pressure points to prevent pressure necrosis or nerve injury. Monitoring devices were applied along with TEDs and pneumatic compressive stockings (to prevent DVT). The patient received preoperative antibiotics for surgical prophylaxis. Ludwin Soliz CRNA sedated and anesthetized the patient for the entire procedure. The patient was prepped and draped in the usual sterile manner. A "time in" then confirmed that the patient was identified with 3 identifiers (name, date and medical record number), the history and physical was in the chart, the signed consent confirming the procedure was in the chart, the patient was in the correct position, the aforementioned prophylactic measures were in place or given, we had the correct personnel and equipment to complete the procedure and that anesthesia, surgery and nursing were given an opportunity to express any concerns. With the agreement of everyone in the room, we proceeded with the operation. A standard curvilinear neck incision was made and dissection was carried down past the platysma muscle. Superior and inferior flaps of skin were then raised using gentle traction and Bovie electrocautery. The midline was incised with Bovie electrocautery in order to retract the strap muscles laterally without having to cut them. Dissection along the posterior aspect of the sternothyroid muscles and the anterior portion of the thyroid allowed the right anterior thyroid to be freed. The thyroid was normal, but it was located a little bit inferior than normal in the neck. No lymphadenopathy was noted. The middle thyroidal vein was controlled proximally and distally and transected to aid in dissection and mobilization of the thyroid. Dissection behind the inferior right thyroid revealed clearly abnormal thyroid tissue in the sense that it was much larger than normal. This was dissected free from surrounding tissues using a combination of gentle spreading of the right angle as well as electrocautery until the entire specimen could be removed. The traction did separate the specimen out into 2 smaller pieces and both were sent for evaluation. This was sent to pathology for frozen section and evaluation. The pathologist called to confirm that this was an adenoma and confirmed the size. Hemostasis was obtained using Bovie electrocautery. Once I obtained the phone call, , the midline was reapproximated by sewing the fascia overlying the strap muscles with a running 3-0 Vicryl suture. The platysma was approximated using interrupted 3-0 Vicryl sutures. The skin was approximated using interrupted mattress 5-0 nylon sutures which will be removed tomorrow morning. At this point a time out was performed that confirmed that all the counts were correct, the procedure that was performed, the blood loss, the urine output, the IV fluids administered, and the patients condition. The skin sutures will be removed tomorrow morning. A dressing was then applied. All chamberlain rgical counts were reported as correct. Having tolerated the procedure well, the patient was subsequently extubated and taken to recovery room in good and stable condition. The vocal cords were noted to be midline and moving at the end of the case with the patient phonating clearly and without difficulty. [employer] disclaimer: This document was created in part using voice recognition technology. Because of the inherent limitations of the system ([employer] D[employer] user manual states that the licensee understands that speech recognition is a statistical process and that recognition errors are inherent in the process), occasional same sounding word substitutions and grammatical errors do occur and persist despite proofreading. Please read this document for context.
== END 2018-09-28 13:09 | disposition home or self-care (01) ==
LOC: SDS 05:57 → MS2 16:30 → UNDOADMIN 16:38 → SDS 09-28 13:09
PROVIDERS: ATTEND Surgery
PROC: 0GBN0ZZ Excision of Right Inferior Parathyroid Gland, Open Approach (ICD-10-PCS; principal; 2018-09-27 07:30)
DX: E21.3 Hyperparathyroidism, unspecified (principal); D35.1 Benign neoplasm of parathyroid gland; I10 Essential (primary) hypertension; I27.20 Pulmonary hypertension, unspecified; R00.1 Bradycardia, unspecified; E03.9 Hypothyroidism, unspecified; E11.9 Type 2 diabetes mellitus without complications; E66.9 Obesity, unspecified; Z68.34 Body mass index [BMI] 34.0-34.9, adult; Z79.84 Long term (current) use of oral hypoglycemic drugs
CPT/HCPCS: 36415; 60500; 80053; 84100; A9270; J0690; J1170; J7120

== ENCOUNTER 2018-10-04 09:51 | Outpatient (CLI) | payer MEDICARE ==
[2018-10-04 10:13] LABS: CALCIUM 10.9 mg/dL (8.5-10.3); PHOSPHORUS 3.7 mg/dL (2.5-4.6)
== END 2018-10-04 09:52 | disposition home or self-care (01) ==
LOC: LAB 09:51
PROVIDERS: ATTEND Surgery
DX: E21.3 Hyperparathyroidism, unspecified (principal)
CPT/HCPCS: 36415; 82310; 84100

== ENCOUNTER 2018-10-15 08:00 | Outpatient (CLI) | payer MEDICARE ==
[2018-10-15 18:59] LABS: CALCIUM 10.3 mg/dL (8.5-10.3); PHOSPHORUS 3.2 mg/dL (2.5-4.6)
== END 2018-10-15 23:59 | disposition home or self-care (01) ==
LOC: LAB.WCP 08:00
PROVIDERS: ATTEND Surgery
DX: E21.3 Hyperparathyroidism, unspecified (principal)
CPT/HCPCS: 36415; 82310; 84100

== ENCOUNTER 2018-10-25 14:33 | Outpatient (CLI) | payer MEDICARE ==
[2018-10-25 18:36] LABS: BASOPHILS % (AUTO) 0.6 %; EOSINOPHILS # (AUTO) 0.2 10^3/uL (0.0-0.7); EOSINOPHILS % (AUTO) 3.4 %; HGB - HEMOGLOBIN 9.8 g/dL (12.0-16.0); MEAN CORPUSCULAR HEMOGLOBIN 30.1 pg (27.0-31.0); MEAN CORPUSCULAR HGB CONC 30.5 g/dL (32.0-36.0); MEAN CORPUSCULAR VOLUME 98.5 fL (81.0-99.0); MEAN PLATELET VOLUME 10.8 fL (7.9-10.8); MONOCYTES # (AUTO) 0.7 10^3/uL (0.0-1.0); MONOCYTES % (AUTO) 11.5 %; NEUTROPHILS # (AUTO) 4.5 10^3/uL (1.5-6.6); NEUTROPHILS % (AUTO) 69.2 %; PLT - PLATELET COUNT 234 10^3/uL (130-450); RED BLOOD COUNT 3.26 10^6/uL (4.20-5.40); RED CELL DISTRIBUTION WIDTH 14.1 % (12.0-15.0); WHITE BLOOD COUNT 6.5 x10^3/uL (4.8-10.8)
[2018-10-25 18:52] LABS: ALBUMIN 3.9 g/dL (3.2-5.5); ALBUMIN/GLOBULIN RATIO 1.1 (1.0-2.2); ALKALINE PHOSPHATASE 51 IU/L (42-121); ALT ALANINE AMINOTRANSFERASE 15 IU/L (10-60); AST ASPARTATE AMINOTRANSFERASE 23 IU/L (10-42); BILIRUBIN,TOTAL 0.5 mg/dL (0.2-1.0); BUN - BLOOD UREA NITROGEN 41 mg/dL (6-20); CALCIUM 10.8 mg/dL (8.5-10.3); CARBON DIOXIDE - CO2 24 mmol/L (21-32); CHLORIDE 107 mmol/L (101-111); CHOL/HDL RATIO 3.1 (<4.4); CHOLESTEROL 131 mg/dL; CREATININE 1.7 mg/dL (0.4-1.0); GFR - MDRD 29 (>89); GLUCOSE 90 mg/dL (70-100); HDL CHOLESTEROL 42 mg/dL; LDL CHOLESTEROL,CALCULATED 46 mg/dL; LDL/HDL RATIO 1.1 (<4.4); SODIUM 140 mmol/L (135-145); TOTAL PROTEIN 7.3 g/dL (6.7-8.2); VLDL CHOLESTEROL 43 mg/dL
[2018-10-25 19:00] LABS: CREATININE,URINE 56.3 mg/dL; MICROALBUM/CREATININE RATIO,UR 5.3 ug/mg (<30.0); MICROALBUMIN,URINE 0.3 mg/dL (0-300.0)
[2018-10-25 19:06] LABS: HB2 TOTAL 10.5 g/dL; HEMOGLOBIN A1C 0.44 g/dL
[2018-10-25 19:09] LABS: FERRITIN 95.4 ng/mL (11.0-306.8)
== END 2018-10-25 23:59 | disposition home or self-care (01) ==
LOC: LAB.WCP 14:33
PROVIDERS: ATTEND Family Medicine
DX: I10 Essential (primary) hypertension (principal); R78.0 Finding of alcohol in blood; E53.8 Deficiency of other specified B group vitamins; D64.9 Anemia, unspecified; E11.9 Type 2 diabetes mellitus without complications; E03.9 Hypothyroidism, unspecified; E21.3 Hyperparathyroidism, unspecified
CPT/HCPCS: 36415; 80053; 80061; 82043; 82570; 82607; 82728; 83036; 83721; 83970; 84443; 85025

== ENCOUNTER 2018-11-12 08:00 | Outpatient (CLI) | payer MEDICARE ==
[2018-11-12 19:28] LABS: CALCIUM 10.9 mg/dL (8.5-10.3)
[2018-11-15 23:02] LABS: ALBUMIN 3.7 g/dL (3.8-4.8); ALPHA 1 GLOBULIN 0.4 g/dL (0.2-0.3); ALPHA 2 GLOBULIN 0.8 g/dL (0.5-0.9); BETA 1 GLOBULIN 0.4 g/dL (0.4-0.6); BETA 2 GLOBULIN 0.4 g/dL (0.2-0.5); GAMMA GLOBULIN 0.8 g/dL (0.8-1.7)
== END 2018-11-12 23:59 | disposition home or self-care (01) ==
LOC: LAB.WCP 08:00
PROVIDERS: ATTEND Family Medicine
DX: E78.5 Hyperlipidemia, unspecified (principal); D64.9 Anemia, unspecified; N18.3 Chronic kidney disease, stage 3 (moderate)
CPT/HCPCS: 36415; 80048; 84155; 84165

== ENCOUNTER 2018-11-29 13:57 | Outpatient (CLI) | payer MEDICARE ==
[2018-11-29 19:03] LABS: CALCIUM 9.9 mg/dL (8.5-10.3); CREATININE 1.3 mg/dL (0.4-1.0)
== END 2018-11-29 23:59 | disposition home or self-care (01) ==
LOC: LAB.WCP 13:57
PROVIDERS: ATTEND Family Medicine
DX: N18.3 Chronic kidney disease, stage 3 (moderate) (principal); D35.1 Benign neoplasm of parathyroid gland
CPT/HCPCS: 36415; 80048; 83970

== ENCOUNTER 2018-12-05 13:27 | Outpatient (CLI) | payer MEDICARE ==
[2018-12-05 18:50] LABS: CALCIUM 9.7 mg/dL (8.5-10.3); PHOSPHORUS 2.7 mg/dL (2.5-4.6)
== END 2018-12-05 23:59 | disposition home or self-care (01) ==
LOC: LAB.WCP 13:27
PROVIDERS: ATTEND Surgery
DX: E83.52 Hypercalcemia (principal); D35.1 Benign neoplasm of parathyroid gland
CPT/HCPCS: 36415; 82310; 84100

== ENCOUNTER 2018-12-30 07:24 | Day surgery (SDC) | payer MEDICARE ==
[2018-12-30] MEDS ORDERED: fentaNYL 100 MCG/2 ML VIAL IVP ONE (07:25)
[2018-12-30] MEDS ORDERED: MIDAZOLAM 2 MG/2 ML VIAL IVP ONE (07:25)
[2018-12-30] MEDS ORDERED: LIDO GARGLE 30 ML BOTTLE ONE (07:28)
[2018-12-30] MEDS ORDERED: LACTATED RINGERS 1,000 ML IV ONE ×3 (07:44→10:12)
[2018-12-30] MEDS ORDERED: LIDO GARGLE 30 ML BOTTLE PO ONE (09:46)
[2018-12-30 11:19] VITALS: BP 111/95
== END 2018-12-30 07:25 | disposition home or self-care (01) ==
LOC: SDS 07:24
PROVIDERS: ATTEND Surgery
PROC: 0DB98ZX Excision of Duodenum, Via Natural or Artificial Opening Endoscopic, Diagnostic (ICD-10-PCS; principal; 2018-12-30 09:15)
PROC: 0DJD8ZZ Inspection of Lower Intestinal Tract, Via Natural or Artificial Opening Endoscopic (ICD-10-PCS; 2018-12-30 09:15)
DX: D50.9 Iron deficiency anemia, unspecified (principal); R19.5 Other fecal abnormalities; K57.30 Diverticulosis of large intestine without perforation or abscess without bleeding; K64.8 Other hemorrhoids; I12.9 Hypertensive chronic kidney disease with stage 1 through stage 4 chronic kidney disease, or unspecified chronic kidney disease; E11.22 Type 2 diabetes mellitus with diabetic chronic kidney disease; N18.3 Chronic kidney disease, stage 3 (moderate); I27.20 Pulmonary hypertension, unspecified; E03.9 Hypothyroidism, unspecified; E78.00 Pure hypercholesterolemia, unspecified; R32 Unspecified urinary incontinence; G89.29 Other chronic pain; M48.061 Spinal stenosis, lumbar region without neurogenic claudication; E53.8 Deficiency of other specified B group vitamins; F40.240 Claustrophobia; E66.9 Obesity, unspecified; Z68.35 Body mass index [BMI] 35.0-35.9, adult; Z79.84 Long term (current) use of oral hypoglycemic drugs; Z87.11 Personal history of peptic ulcer disease
CPT/HCPCS: 43239; 45378; A9270; J7120

== ENCOUNTER 2019-01-02 09:00 | Outpatient (CLI) | payer MEDICARE ==
[2019-01-02 13:07] LABS: CALCIUM 9.8 mg/dL (8.5-10.3); CREATININE 1.6 mg/dL (0.4-1.0)
== END 2019-01-02 23:59 | disposition home or self-care (01) ==
LOC: LAB.WCP 09:00
PROVIDERS: ATTEND Family Medicine
DX: N18.3 Chronic kidney disease, stage 3 (moderate) (principal)
CPT/HCPCS: 36415; 80048

== ENCOUNTER 2019-02-17 10:31 | Outpatient (CLI) | payer MEDICARE ==
[2019-02-17 18:35] LABS: BASOPHILS % (AUTO) 0.7 %; EOSINOPHILS # (AUTO) 0.2 10^3/uL (0.0-0.7); HGB - HEMOGLOBIN 10.1 g/dL (12.0-16.0); LYMPHOCYTES # (AUTO) 0.9 10^3/uL (1.5-3.5); LYMPHOCYTES % (AUTO) 15.6 %; MEAN CORPUSCULAR HEMOGLOBIN 29.8 pg (27.0-31.0); MEAN CORPUSCULAR HGB CONC 30.1 g/dL (32.0-36.0); MEAN CORPUSCULAR VOLUME 99.1 fL (81.0-99.0); MEAN PLATELET VOLUME 10.4 fL (7.9-10.8); MONOCYTES # (AUTO) 0.5 10^3/uL (0.0-1.0); MONOCYTES % (AUTO) 9.1 %; NEUTROPHILS # (AUTO) 4.1 10^3/uL (1.5-6.6); NEUTROPHILS % (AUTO) 71.2 %; PLT - PLATELET COUNT 216 10^3/uL (130-450); RED BLOOD COUNT 3.39 10^6/uL (4.20-5.40); RED CELL DISTRIBUTION WIDTH 13.6 % (12.0-15.0); WHITE BLOOD COUNT 5.7 x10^3/uL (4.8-10.8)
[2019-02-17 18:53] LABS: ALBUMIN 3.8 g/dL (3.2-5.5); ALBUMIN/GLOBULIN RATIO 1.4 (1.0-2.2); BILIRUBIN,TOTAL 0.9 mg/dL (0.2-1.0); CALCIUM 10.2 mg/dL (8.5-10.3); CREATININE 1.5 mg/dL (0.4-1.0); TOTAL PROTEIN 6.6 g/dL (6.7-8.2)
== END 2019-02-17 23:59 | disposition home or self-care (01) ==
LOC: LAB.WCP 10:31
PROVIDERS: ATTEND Family Medicine
DX: E83.52 Hypercalcemia (principal); D35.1 Benign neoplasm of parathyroid gland; D64.9 Anemia, unspecified
CPT/HCPCS: 36415; 80053; 83970; 85025

== ENCOUNTER 2019-04-03 11:13 | Outpatient (CLI) | payer MEDICARE ==
--- NOTE | 2019-04-15 15:58 | Mammography Report ---
Reason: ROUTINE MAMMO Procedure Date: 04/03/2019 Accession Number: [id number] / [id number] Procedure: MGN - Screening Mammo Dig Bilat CPT Code: Final Report FULL RESULT: EXAM: Screening Mammo Dig Bilat DATE: 04/03/2019 11:48 AM CLINICAL HISTORY: Screening encounter. TECHNIQUE: (B) - Bilateral CC and MLO views were obtained. COMPARISON: 02/14/2018 through 04/22/2010. PARENCHYMAL PATTERN: (F) - The breast(s) demonstrate(s) diffuse fatty replacement. FINDINGS: There are no suspicious masses, calcifications, or areas of distortion. IMPRESSION: Negative examination. BI-RADS category 1. RECOMMENDATION: (ANNUAL) - Recommend routine annual screening mammography. BI-RADS CATEGORY: (1) - Negative. STANDARD QUALIFYING STATEMENTS: 1. This examination was not reviewed with the aid of Computer-Aided Detection (CAD). 2. A negative or benign imaging report should not preclude biopsy if clinically suspicious findings are present. 3. Dense breasts may obscure an underlying neoplasm. 4. This examination was reviewed without the aid of 3D breast imaging (tomosynthesis).
== END 2019-04-03 11:14 | disposition home or self-care (01) ==
LOC: DI.N 11:13
DX: Z12.31 Encounter for screening mammogram for malignant neoplasm of breast (principal)
CPT/HCPCS: 77067

== ENCOUNTER 2019-07-29 08:00 | Outpatient (CLI) | payer MEDICARE ==
[2019-07-29 11:52] LABS: BASOPHILS % (AUTO) 0.6 %; EOSINOPHILS # (AUTO) 0.2 10^3/uL (0.0-0.7); EOSINOPHILS % (AUTO) 2.8 %; HGB - HEMOGLOBIN 10.3 g/dL (12.0-16.0); LYMPHOCYTES # (AUTO) 0.8 10^3/uL (1.5-3.5); LYMPHOCYTES % (AUTO) 12.8 %; MEAN CORPUSCULAR HGB CONC 31.5 g/dL (32.0-36.0); MEAN CORPUSCULAR VOLUME 98.5 fL (81.0-99.0); MEAN PLATELET VOLUME 10.7 fL (7.9-10.8); MONOCYTES # (AUTO) 0.4 10^3/uL (0.0-1.0); MONOCYTES % (AUTO) 6.7 %; NEUTROPHILS # (AUTO) 4.9 10^3/uL (1.5-6.6); NEUTROPHILS % (AUTO) 76.6 %; PLT - PLATELET COUNT 203 10^3/uL (130-450); RED BLOOD COUNT 3.32 10^6/uL (4.20-5.40); RED CELL DISTRIBUTION WIDTH 13.2 % (12.0-15.0); WHITE BLOOD COUNT 6.4 x10^3/uL (4.8-10.8)
[2019-07-29 12:07] LABS: ALBUMIN/GLOBULIN RATIO 1.5 (1.0-2.2); BILIRUBIN,TOTAL 0.7 mg/dL (0.2-1.0); CALCIUM 10.2 mg/dL (8.5-10.3); CREATININE 1.6 mg/dL (0.4-1.0); TOTAL PROTEIN 6.6 g/dL (6.7-8.2)
[2019-07-29 12:10] LABS: HB2 TOTAL 10.5 g/dL; HEMOGLOBIN A1C 0.42 g/dL; HEMOGLOBIN A1C % 5.8 % (4.6-6.2)
[2019-07-29 12:19] LABS: FERRITIN 71.9 ng/mL (11.0-306.8)
== END 2019-07-29 23:59 | disposition home or self-care (01) ==
LOC: LAB.WCP 08:00
PROVIDERS: ATTEND Family Medicine
DX: E11.9 Type 2 diabetes mellitus without complications (principal); D64.9 Anemia, unspecified; E03.9 Hypothyroidism, unspecified; E21.3 Hyperparathyroidism, unspecified; D35.1 Benign neoplasm of parathyroid gland
CPT/HCPCS: 36415; 80053; 82728; 83036; 83970; 84443; 85025

== ENCOUNTER 2019-08-29 10:20 | Outpatient (CLI) | payer MEDICARE ==
[2019-08-29 11:38] LABS: BASOPHILS % (AUTO) 0.5 %; EOSINOPHILS # (AUTO) 0.4 10^3/uL (0.0-0.7); EOSINOPHILS % (AUTO) 4.6 %; LYMPHOCYTES # (AUTO) 1.2 10^3/uL (1.5-3.5); LYMPHOCYTES % (AUTO) 14.4 %; MEAN CORPUSCULAR HEMOGLOBIN 30.3 pg (27.0-31.0); MEAN CORPUSCULAR HGB CONC 30.3 g/dL (32.0-36.0); MEAN PLATELET VOLUME 10.4 fL (7.9-10.8); MONOCYTES # (AUTO) 0.8 10^3/uL (0.0-1.0); MONOCYTES % (AUTO) 9.6 %; NEUTROPHILS # (AUTO) 5.7 10^3/uL (1.5-6.6); NEUTROPHILS % (AUTO) 69.7 %; PLT - PLATELET COUNT 236 10^3/uL (130-450); RED CELL DISTRIBUTION WIDTH 13.6 % (12.0-15.0); WHITE BLOOD COUNT 8.1 x10^3/uL (4.8-10.8)
[2019-08-29 12:07] LABS: CRP - C-REACTIVE PROTEIN 1.1 mg/dL (0-1.0)
[2019-08-29 12:10] LABS: URIC ACID 9.7 mg/dL (2.6-7.2)
== END 2019-08-29 23:59 | disposition home or self-care (01) ==
LOC: LAB.WCP 10:20
PROVIDERS: ATTEND Family Medicine
DX: M10.9 Gout, unspecified (principal)
CPT/HCPCS: 36415; 84550; 85025; 85651; 86140

== ENCOUNTER 2019-11-28 07:00 | Outpatient (CLI) | payer MEDICARE ==
[2019-11-28 11:23] LABS: BASOPHILS # (AUTO) 0.1 10^3/uL (0.0-0.1); BASOPHILS % (AUTO) 0.6 %; EOSINOPHILS # (AUTO) 0.3 10^3/uL (0.0-0.7); EOSINOPHILS % (AUTO) 3.4 %; HGB - HEMOGLOBIN 9.9 g/dL (12.0-16.0); LYMPHOCYTES # (AUTO) 1.2 10^3/uL (1.5-3.5); LYMPHOCYTES % (AUTO) 14.4 %; MEAN CORPUSCULAR HEMOGLOBIN 30.2 pg (27.0-31.0); MEAN CORPUSCULAR VOLUME 100.6 fL (81.0-99.0); MEAN PLATELET VOLUME 10.8 fL (7.9-10.8); MONOCYTES # (AUTO) 0.6 10^3/uL (0.0-1.0); MONOCYTES % (AUTO) 7.6 %; NEUTROPHILS # (AUTO) 5.9 10^3/uL (1.5-6.6); NEUTROPHILS % (AUTO) 73.6 %; PLT - PLATELET COUNT 227 10^3/uL (130-450); RED BLOOD COUNT 3.28 10^6/uL (4.20-5.40); RED CELL DISTRIBUTION WIDTH 13.3 % (12.0-15.0); WHITE BLOOD COUNT 8.1 x10^3/uL (4.8-10.8)
[2019-11-28 12:16] LABS: ALBUMIN 3.9 g/dL (3.2-5.5); ALBUMIN/GLOBULIN RATIO 1.3 (1.0-2.2); ALKALINE PHOSPHATASE 43 IU/L (42-121); ALT ALANINE AMINOTRANSFERASE 13 IU/L (10-60); AST ASPARTATE AMINOTRANSFERASE 15 IU/L (10-42); BILIRUBIN,TOTAL 0.8 mg/dL (0.2-1.0); BUN - BLOOD UREA NITROGEN 43 mg/dL (6-20); CALCIUM 10.3 mg/dL (8.5-10.3); CARBON DIOXIDE - CO2 23 mmol/L (21-32); CHLORIDE 111 mmol/L (101-111); CHOL/HDL RATIO 3.9 (<4.4); CHOLESTEROL 159 mg/dL; CREATININE 1.7 mg/dL (0.4-1.0); GLUCOSE 103 mg/dL (70-100); HDL CHOLESTEROL 41 mg/dL; LDL CHOLESTEROL,CALCULATED 86 mg/dL; LDL/HDL RATIO 2.1 (<4.4); SODIUM 142 mmol/L (135-145); TOTAL PROTEIN 6.8 g/dL (6.7-8.2); VLDL CHOLESTEROL 32 mg/dL
== END 2019-11-28 23:59 | disposition home or self-care (01) ==
LOC: LAB.WCP 07:00
PROVIDERS: ATTEND Family Medicine
DX: E11.9 Type 2 diabetes mellitus without complications (principal)
CPT/HCPCS: 36415; 80053; 80061; 83036; 83721; 84443; 85025

== ENCOUNTER 2020-01-20 08:00 | Outpatient (CLI) | payer MEDICARE ==
[2020-01-20 18:30] LABS: BASOPHILS % (AUTO) 0.7 %; EOSINOPHILS # (AUTO) 0.2 10^3/uL (0.0-0.7); EOSINOPHILS % (AUTO) 3.5 %; HGB - HEMOGLOBIN 10.5 g/dL (12.0-16.0); LYMPHOCYTES # (AUTO) 0.9 10^3/uL (1.5-3.5); MEAN CORPUSCULAR HEMOGLOBIN 30.5 pg (27.0-31.0); MEAN CORPUSCULAR HGB CONC 30.5 g/dL (32.0-36.0); MEAN PLATELET VOLUME 10.6 fL (7.9-10.8); MONOCYTES # (AUTO) 0.5 10^3/uL (0.0-1.0); MONOCYTES % (AUTO) 7.9 %; NEUTROPHILS # (AUTO) 4.4 10^3/uL (1.5-6.6); NEUTROPHILS % (AUTO) 72.6 %; PLT - PLATELET COUNT 248 10^3/uL (130-450); RED BLOOD COUNT 3.44 10^6/uL (4.20-5.40); RED CELL DISTRIBUTION WIDTH 12.8 % (12.0-15.0); WHITE BLOOD COUNT 6.1 x10^3/uL (4.8-10.8)
[2020-01-20 18:41] LABS: ALBUMIN/GLOBULIN RATIO 1.3 (1.0-2.2); BILIRUBIN,TOTAL 0.8 mg/dL (0.2-1.0); CREATININE 1.8 mg/dL (0.4-1.0); TOTAL PROTEIN 7.1 g/dL (6.7-8.2)
== END 2020-01-20 23:59 | disposition home or self-care (01) ==
LOC: LAB.N 08:00
PROVIDERS: ATTEND Family Medicine
DX: R07.89 Other chest pain (principal); K30 Functional dyspepsia; D64.9 Anemia, unspecified
CPT/HCPCS: 36415; 80053; 83970; 84484; 85025

== ENCOUNTER 2020-02-23 09:47 | Outpatient (CLI) | payer MEDICARE ==
[2020-03-05 12:20] LABS: CALCIUM 10.3 mg/dL (8.5-10.3); CREATININE 1.9 mg/dL (0.4-1.0)
== END 2020-02-23 23:59 | disposition home or self-care (01) ==
LOC: LAB.WCP 09:47
PROVIDERS: ATTEND Family Medicine
DX: E21.3 Hyperparathyroidism, unspecified (principal); N28.9 Disorder of kidney and ureter, unspecified
CPT/HCPCS: 36415; 80048; 83970

== ENCOUNTER 2020-05-07 13:59 | Outpatient (CLI) | payer MEDICARE ==
--- NOTE | 2020-05-07 16:49 | DEXA Report ---
PROCEDURE: Dexa Spine and/or Hip INDICATIONS: BONE DISORDER TECHNIQUE: Dual energy x-ray absorptiometry (DXA) was performed on a [employer] System. Regions measur ed are the AP Spine, femoral neck, and if needed forearm. COMPARISON: 02/14/2018. FINDINGS: Left Hip: Bone Mineral Density 0.644 g/cm/cm,T score -2.9, osteoporosis Left Femoral Neck: Bone Mineral Density 0.633 g/cm/cm, T score -2.9, osteoporosis Left forearm: Bone Mineral Density 0.599 g/cm/cm, T score -3.2, osteoporosis (T score greater or equal to -1.0: NORMAL) (T score from -1.1 to -2.4: OSTEOPENIA) (T score less than or equal to -2.5 to: OSTEOPOROSIS) Impression: Osteoporosis. Bone mineral density has decreased 14.7% in the left hip in the interval si nce prior exam obtained 02/14/2018. Patients with diagnosis of osteoporosis or osteopenia should have regular bone mineral density assess ment. For those eligible for Medicare, routine testing is allowed once every 2 years. Testing frequ ency can be increased for patients who have rapidly progressing disease or for those who are receivin g medical therapy to restore bone mass. Reviewed by: Meena Pineda MD, PhD on 05/07/2020 4:48 PM PDT Approved by: Meena Pineda MD, PhD on 05/07/2020 4:48 PM PDT Station ID: [id number]
== END 2020-05-07 14:00 | disposition home or self-care (01) ==
LOC: DI 13:59
PROVIDERS: ATTEND Family Medicine
DX: M81.0 Age-related osteoporosis without current pathological fracture (principal)

== ENCOUNTER 2020-05-13 08:00 | Outpatient (CLI) | payer MEDICARE ==
[2020-05-13 12:08] LABS: BASOPHILS # (AUTO) 0.1 10^3/uL (0.0-0.1); BASOPHILS % (AUTO) 0.7 %; EOSINOPHILS # (AUTO) 0.3 10^3/uL (0.0-0.7); HCT - HEMATOCRIT 31.6 % (37.0-47.0); HGB - HEMOGLOBIN 9.9 g/dL (12.0-16.0); LYMPHOCYTES # (AUTO) 0.8 10^3/uL (1.5-3.5); LYMPHOCYTES % (AUTO) 11.8 %; MEAN CORPUSCULAR HGB CONC 31.3 g/dL (32.0-36.0); MEAN CORPUSCULAR VOLUME 99.1 fL (81.0-99.0); MEAN PLATELET VOLUME 11.1 fL (7.9-10.8); MONOCYTES # (AUTO) 0.7 10^3/uL (0.0-1.0); MONOCYTES % (AUTO) 10.4 %; NEUTROPHILS % (AUTO) 72.8 %; PLT - PLATELET COUNT 199 10^3/uL (130-450); RED BLOOD COUNT 3.19 10^6/uL (4.20-5.40); RED CELL DISTRIBUTION WIDTH 13.6 % (12.0-15.0); WHITE BLOOD COUNT 6.8 x10^3/uL (4.8-10.8)
[2020-05-13 12:13] LABS: ALBUMIN 3.6 g/dL (3.2-5.5); ALBUMIN/GLOBULIN RATIO 1.3 (1.0-2.2); BILIRUBIN,TOTAL 0.4 mg/dL (0.2-1.0); CALCIUM 9.6 mg/dL (8.5-10.3); CREATININE 1.9 mg/dL (0.4-1.0); POTASSIUM 5.1 mmol/L (3.5-5.0); TOTAL PROTEIN 6.4 g/dL (6.7-8.2)
[2020-05-13 17:57] LABS: BILIRUBIN,URINE NEGATIVE (NEGATIVE); GLUCOSE, URINE (UA) NEGATIVE (NEGATIVE); KETONES,URINE (UA) NEGATIVE (NEGATIVE); LEUKOCYTE ESTERASE, URINE NEGATIVE (NEGATIVE); NITRITE,URINE NEGATIVE (NEGATIVE); OCCULT BLOOD,URINE NEGATIVE (NEGATIVE); PH,URINE 5.5 PH (5.0-7.5); PROTEIN,URINE NEGATIVE (NEGATIVE); UROBILINOGEN,URINE 0.2 (NORMAL) E.U./dL (NORMAL)
[2020-05-13 18:05] LABS: BACTERIA,URINE None Seen /HPF (None Seen); CLARITY,URINE CLEAR (CLEAR); RBC,URINE 0-5 /HPF (0-5); SQUAMOUS EPITHELIAL CELL,UR RARE Squamous (<= Few); WBC,URINE 0-3 /HPF (0-5)
== END 2020-05-13 23:59 | disposition home or self-care (01) ==
LOC: LAB.WCP 08:00
PROVIDERS: ATTEND Family Medicine
DX: E21.3 Hyperparathyroidism, unspecified (principal); N18.30 Chronic kidney disease, stage 3 unspecified; D64.9 Anemia, unspecified
CPT/HCPCS: 36415; 80053; 81001; 82306; 83970; 85025

== ENCOUNTER 2020-06-01 08:00 | Outpatient (CLI) | payer MEDICARE ==
[2020-06-01 13:36] LABS: CALCIUM 10.3 mg/dL (8.5-10.3); CREATININE 1.8 mg/dL (0.4-1.0); POTASSIUM 5.4 mmol/L (3.5-5.0)
== END 2020-06-01 23:59 | disposition home or self-care (01) ==
LOC: LAB.WCP 08:00
PROVIDERS: ATTEND Family Medicine
DX: N18.30 Chronic kidney disease, stage 3 unspecified (principal); E21.3 Hyperparathyroidism, unspecified
CPT/HCPCS: 36415; 80048; 83970

== ENCOUNTER 2020-06-02 08:00 | Outpatient (CLI) | payer MEDICARE | END 2020-06-02 23:59 | disposition home or self-care (01) | LOC: LAB.WCP 08:00 | PROVIDERS: ATTEND Family Medicine | DX: E21.3 Hyperparathyroidism, unspecified (principal) | CPT/HCPCS: 36415; 82340 ==

== ENCOUNTER 2020-06-07 13:45 | Outpatient (CLI) | payer MEDICARE ==
--- NOTE | 2020-06-07 15:32 | Ultrasound Report ---
PROCEDURE: Duplex Ext Veins Left INDICATIONS: L LEG EDEMA TECHNIQUE: Real-time imaging, as well as color and pulse Doppler interrogation, were performed of the lower extr emity deep veins from the inguinal ligament to the popliteal fossa. COMPARISON: None. FINDINGS: The deep veins are normally compressible, and free of intraluminal thrombus. Color and pu lse Doppler demonstrate normal phasic intraluminal flow. There is normal augmentation response to di stal compression maneuver. IMPRESSION: No sonographic evidence of DVT. Moreno's cyst in the popliteal fossa measuring up to 4 cm. Reviewed by: Valentin Keenan MD on 06/07/2020 3:31 PM PDT Approved by: Valentin Keenan MD on 06/07/2020 3:31 PM PDT Station ID: [id number]
== END 2020-06-07 13:46 | disposition home or self-care (01) ==
LOC: DI 13:45
PROVIDERS: ATTEND Family Medicine
DX: M71.22 Synovial cyst of popliteal space [Baker], left knee (principal)

== ENCOUNTER 2020-06-17 10:56 | Outpatient (CLI) | payer MEDICARE ==
--- NOTE | 2020-06-18 09:36 | Mammography Report ---
BILATERAL DIGITAL SCREENING MAMMOGRAM: 06/17/2020 CLINICAL: Routine screening. Comparison is made to exams dated: 04/03/2019 mammogram, 02/14/2018 mammogram - [facility], 05/03/2015 mammogram, 04/29/2013 mammogram, 04/24/2012 mammogram, and 04/24/2011 mammogram - [facility]. There are scattered fibroglandular elements in both breasts. There are benign calcifications in both breasts. No significant masses, calcifications, or other findings are seen in either breast. There has been no significant interval change. IMPRESSION: BENIGN There is no mammographic evidence of malignancy. A 1 year screening mammogram is recommended. This exam was interpreted at Station ID: [id number]. NOTE: For mammograms, a report in lay terms will be sent to the patient. Approximately 15% of breast malignancies will not be visualized mammographically. In the management of a palpable breast mass, a negative mammogram must not discourage biopsy of a clinically suspicious lesion. Electronically Signed By: Bay Dorado M.D. [email or web address]:06/17/2020 11:31:54 ACR BI-RADS Category 2: Benign Finding(s) 3342F PARENCHYMAL PATTERN: (A) - The breast(s) demonstrate(s) scattered fibroglandular densities. BI-RADS CATEGORY: (2) - 2 RECOMMENDATION: (ANNUAL) - Recommend routine annual screening mammography. [id number] 1 year screening LATERALITY: (B)
== END 2020-06-17 10:57 | disposition home or self-care (01) ==
LOC: DI.N 10:56
DX: Z12.31 Encounter for screening mammogram for malignant neoplasm of breast (principal)

== ENCOUNTER 2020-06-25 14:08 | Outpatient (CLI) | payer MEDICARE ==
--- NOTE | 2020-06-25 15:51 | XRAY Report ---
PROCEDURE: Clavicle RT INDICATIONS: FRACTURE OF RIGHT CLAVICLE TECHNIQUE: 2 views of the clavicle were acquired. COMPARISON: None. FINDINGS: Bones: No fractures or dislocations. No suspicious bony lesions. Soft tissues: No suspicious soft tissue calcifications. IMPRESSION: No visualized acute fracture or dislocation. However, occult injury cannot be excluded. Recommend marquis rt interval imaging follow-up in 7-10 days as clinically indicated for additional evaluation. Reviewed by: Jaylin Erazo MD on 06/25/2020 3:50 PM PDT Approved by: Jaylin Erazo MD on 06/25/2020 3:50 PM PDT Station ID: [id number]
== END 2020-06-25 23:59 | disposition home or self-care (01) ==
LOC: DI.N 14:08
PROVIDERS: ATTEND Physician Assistant Medical
DX: S42.001S Fracture of unspecified part of right clavicle, sequela (principal)

== ENCOUNTER 2020-07-16 08:00 | Outpatient (CLI) | payer MEDICARE ==
[2020-07-16 17:38] LABS: BASOPHILS % (AUTO) 0.4 %; EOSINOPHILS # (AUTO) 0.4 10^3/uL (0.0-0.7); EOSINOPHILS % (AUTO) 5.1 %; HCT - HEMATOCRIT 30.9 % (37.0-47.0); HGB - HEMOGLOBIN 9.3 g/dL (12.0-16.0); LYMPHOCYTES # (AUTO) 0.9 10^3/uL (1.5-3.5); MEAN CORPUSCULAR HEMOGLOBIN 29.9 pg (27.0-31.0); MEAN CORPUSCULAR HGB CONC 30.1 g/dL (32.0-36.0); MEAN CORPUSCULAR VOLUME 99.4 fL (81.0-99.0); MEAN PLATELET VOLUME 11.2 fL (7.9-10.8); MONOCYTES # (AUTO) 0.6 10^3/uL (0.0-1.0); MONOCYTES % (AUTO) 7.5 %; NEUTROPHILS % (AUTO) 75.5 %; PLT - PLATELET COUNT 222 10^3/uL (130-450); RED BLOOD COUNT 3.11 10^6/uL (4.20-5.40); RED CELL DISTRIBUTION WIDTH 13.2 % (12.0-15.0)
[2020-07-16 18:01] LABS: ALBUMIN 3.7 g/dL (3.2-5.5); ALBUMIN/GLOBULIN RATIO 1.3 (1.0-2.2); BILIRUBIN,TOTAL 0.4 mg/dL (0.2-1.0); CALCIUM 9.7 mg/dL (8.5-10.3); CREATININE 2.1 mg/dL (0.4-1.0); POTASSIUM 4.8 mmol/L (3.5-5.0); TOTAL PROTEIN 6.6 g/dL (6.7-8.2)
== END 2020-07-16 23:59 | disposition home or self-care (01) ==
LOC: LAB.WCP 08:00
PROVIDERS: ATTEND Family Medicine
DX: R60.0 Localized edema (principal)
CPT/HCPCS: 36415; 80053; 85025

== ENCOUNTER 2020-07-17 10:45 | Outpatient (CLI) | payer MEDICARE ==
--- NOTE | 2020-07-17 11:32 | XRAY Report ---
PROCEDURE: Clavicle RT INDICATIONS: RIGHT CLAVICLE FX NEW FALL TECHNIQUE: 2 views of the clavicle were acquired. COMPARISON: Similar study 06/25/2020. FINDINGS: Bones: No fractures or dislocations. No suspicious bony lesions. Soft tissues: No suspicious soft tissue calcifications. IMPRESSION: Osteoarthritic change at the AC joint appears stable over time. No hidden fracture identified that wa s not detected during recent plain film imaging in mid June. Reviewed by: Kenney Arnett MD on 07/17/2020 10:31 AM GIL Approved by: Kenney Arnett MD on 07/17/2020 10:31 AM GIL Station ID: [id number]
== END 2020-07-17 10:46 | disposition home or self-care (01) ==
LOC: DI.N 10:45
PROVIDERS: ATTEND Physician Assistant Medical
DX: M19.011 Primary osteoarthritis, right shoulder (principal)

== ENCOUNTER 2020-08-03 11:27 | Outpatient (CLI) | payer MEDICARE ==
--- NOTE | 2020-08-03 16:20 | XRAY Report ---
PROCEDURE: Clavicle RT INDICATIONS: FX OF R CLAVICLE TECHNIQUE: 2 views of the clavicle were acquired. COMPARISON: 07/17/2020 FINDINGS: Bones: Moderate degenerative changes of the right acromioclavicular joint. Coracoclavicular and acrom ioclavicular intervals are maintained. No acute or subacute fractures seen. No reactive changes of chamberlain bacute fracture healing. No suspicious bony lesions. Soft tissues: No suspicious soft tissue calcifications. IMPRESSION: Right shoulder and clavicle without acute fracture or dislocation. Moderate hypertrophic osteoarthritic changes of the right acromioclavicular joint. Reviewed by: Hernandez Fierro MD on 08/03/2020 4:18 PM PDT Approved by: Hernandez Fierro MD on 08/03/2020 4:18 PM PDT Station ID: [id number]
== END 2020-08-03 23:59 | disposition home or self-care (01) ==
LOC: DI.N 11:27
PROVIDERS: ATTEND Physician Assistant
DX: M19.011 Primary osteoarthritis, right shoulder (principal); S42.001S Fracture of unspecified part of right clavicle, sequela

== ENCOUNTER 2020-08-18 08:00 | Outpatient (CLI) | payer MEDICARE ==
[2020-08-18 18:19] LABS: CALCIUM 10.3 mg/dL (8.5-10.3); CREATININE 1.9 mg/dL (0.4-1.0); POTASSIUM 5.6 mmol/L (3.5-5.0)
[2020-08-18 18:25] LABS: HCT - HEMATOCRIT 34.3 % (37.0-47.0); HGB - HEMOGLOBIN 10.2 g/dL (12.0-16.0); MEAN CORPUSCULAR HEMOGLOBIN 29.8 pg (27.0-31.0); MEAN CORPUSCULAR HGB CONC 29.7 g/dL (32.0-36.0); MEAN CORPUSCULAR VOLUME 100.3 fL (81.0-99.0); MEAN PLATELET VOLUME 11.1 fL (7.9-10.8); RED BLOOD COUNT 3.42 10^6/uL (4.20-5.40); RED CELL DISTRIBUTION WIDTH 13.5 % (12.0-15.0); WHITE BLOOD COUNT 10.7 x10^3/uL (4.8-10.8)
== END 2020-08-18 23:59 | disposition home or self-care (01) ==
LOC: LAB.WCP 08:00
PROVIDERS: ATTEND Family Medicine
DX: R60.0 Localized edema (principal)
CPT/HCPCS: 36415; 80048; 85025; 85027

== ENCOUNTER 2020-08-26 10:03 | Outpatient (CLI) | payer MEDICARE ==
[2020-08-26 12:11] LABS: CALCIUM 10.2 mg/dL (8.5-10.3); POTASSIUM 5.2 mmol/L (3.5-5.0)
== END 2020-08-26 23:59 | disposition home or self-care (01) ==
LOC: LAB.WCP 10:03
PROVIDERS: ATTEND Family Medicine
DX: E87.5 Hyperkalemia (principal)
CPT/HCPCS: 36415; 80048

== ENCOUNTER 2020-09-09 08:00 | Outpatient (CLI) | payer MEDICARE ==
[2020-09-09 11:52] LABS: CALCIUM 10.2 mg/dL (8.5-10.3); CREATININE 1.7 mg/dL (0.4-1.0); POTASSIUM 4.8 mmol/L (3.5-5.0)
== END 2020-09-09 23:59 | disposition home or self-care (01) ==
LOC: LAB.WCP 08:00
PROVIDERS: ATTEND Family Medicine
DX: E87.5 Hyperkalemia (principal)
CPT/HCPCS: 36415; 80048